=== PATIENT | male | born 1955 | race Caucasian/White ===

== ENCOUNTER 2018-12-06 10:54 | Inpatient (IN) | payer OTHER ==
[~2018-12-06] VITALS: Ht 172.7 cm; Wt 99.6 kg
[~2018-12-06 10:54] MED LIST: ASPI-903 PO; ATOR-2 PO; CIPR750T3 PO; GABA300C16 PO; GLIM1TAB2 PO; MTF1000T PO; SULF1TAB31 PO
[2018-12-06] MEDS ORDERED: KETOROLAC 15 MG INJ IV STA (12:10)
[2018-12-06] MEDS ORDERED: CEFTRIAXONE 1 GM/50 ML (PMX) 50 ML IVPB ONE (12:30)
[2018-12-06] MEDS ORDERED: SOD CHLORIDE 0.9% 500 ML IV ONE (12:30)
[2018-12-06] MEDS ORDERED: ONDANSETRON 4 MG INJ IV PRN ×2 (16:30→18:30)
[2018-12-06] MEDS ORDERED: ACETAMINOPHEN 325 MG TAB PO PRN ×2 (16:30→18:30)
--- NOTE | 2018-12-06 17:34 | ERD ---
ER Documentation Chief Complaint Chief Complaint LEFT LEG PAIN ; SENT BY PCP - NEED ULTRASOUND HPI 63-year-old male past medical history of diabetes and hypertension presents for left foot pain times 1 month. He states he has a wound over the left first toe. He was admitted to the hospital here about 2 weeks ago. Was found to have osteomyelitis. He was given IV antibiotics and discharged with oral antibiotics. He follow-up with his severity of illness coordinator this morning and was asked to return to the ER for concern of ischemic limb and vascular workup. Patient states that the wound does not appear to be improving and there is darkening of the overlying skin. Denies CP, SOB, abdominal pain. ROS All systems reviewed and are negative except as per history of present illness. Medications Home Meds Active Scripts Glimepiride* (Glimepiride*) 1 Mg Tablet, 1 MG PO WITH BREAKFAST for 30 Days, #30 TAB Prov:JANELLE LUNA MD 11/28/18 Ciprofloxacin Hcl* (Ciprofloxacin Hcl*) 750 Mg Tablet, 750 MG PO BID for 30 Days, #60 TAB Prov:JANELLE LUNA MD 11/28/18 Sulfamethoxazole/Trimethoprim* (Bactrim Ds* Tablet) 1 Each Tablet, 1 TAB PO BID for 30 Days, #60 TAB Prov:JANELLE LUNA MD 11/28/18 Reported Medications Aspirin* (Aspirin* Chew) 81 Mg Tab.chew, 81 MG PO DAILY, TAB.CHEW 11/26/18 Atorvastatin* (Atorvastatin*) 80 Mg Tablet, 80 MG PO QHS, #30 TAB 11/26/18 Metformin* (Glucophage*) 1,000 Mg Tablet, 1000 MG PO BID, #60 TAB 11/26/18 Gabapentin* (Gabapentin*) 300 Mg Capsule, 300 MG PO TID, #90 CAP 11/26/18 Allergies Allergies: Coded Allergies: No Known Allergy (Unverified , 11/26/18) PMhx/Soc History of Surgery: Yes (Bilateral eyes Cataractectomy) Anesthesia Reaction: No Hx Neurological Disorder: Yes (neuropaty) Hx Respiratory Disorders: No Hx Cardiac Disorders: No Hx Psychiatric Problems: No Hx Miscellaneous Medical Probl: No Hx Alcohol Use: No Hx Substance Use: No Hx Tobacco Use: No Smoking Status: Never smoker Physical Exam Vitals Vital Signs Date Temp Pulse Resp B/P (MAP) Pulse Ox O2 O2 Flow FiO2 Time Delivery Rate 12/06/18 77 18 138/75 98 Room Air 15:50 (96) 12/06/18 97.9 90 18 119/57 96 11:03 (77) Physical Exam Const: No acute distress Resp: Clear to auscultation bilaterally Cardio: Regular rate and rhythm, no murmurs Abd: Soft, non tender, non distended. Normal bowel sounds Skin: No petechiae or rashes Back: No midline or flank tenderness Ext: left 5th toe gangrene and swelling noted Neur: Awake and alert Psych: Normal Mood and Affect Result Diagram: 12/06/18 1210 12/06/18 1210 Results 24 hrs Laboratory Tests Test 12/06/18 12:09 12/06/18 12:10 Prothrombin Time 13.6 Sec Prothrombin Time Ratio 1.1 INR International Normalized Ratio 1.03 Activated Partial Thromboplast Time 44.7 Sec White Blood Count 9.0 10^3/ul Red Blood Count 4.38 10^6/ul Hemoglobin 12.6 g/dl Hematocrit 38.0 % Mean Corpuscular Volume 86.8 fl Mean Corpuscular Hemoglobin 28.8 pg Mean Corpuscular Hemoglobin Concent 33.2 g/dl Red Cell Distribution Width 12.6 % Platelet Count 424 10^3/UL Mean Platelet Volume 8.7 fl Immature Granulocytes % 0.400 % Neutrophils % 70.0 % Lymphocytes % 18.0 % Monocytes % 9.0 % Eosinophils % 2.3 % Basophils % 0.3 % Nucleated Red Blood Cells % 0.0 /100WBC Immature Granulocytes # 0.040 10^3/ul Neutrophils # 6.3 10^3/ul Lymphocytes # 1.6 10^3/ul Monocytes # 0.8 10^3/ul Eosinophils # 0.2 10^3/ul Basophils # 0.0 10^3/ul Nucleated Red Blood Cells # 0.0 10^3/ul Erythrocyte Sedimentation Rate 96 mm/Hr Sodium Level 138 mmol/L Potassium Level 4.9 mmol/L Chloride Level 103 mmol/L Carbon Dioxide Level 24 mmol/L Anion Gap 11 Blood Urea Nitrogen 31 mg/dl Creatinine 1.50 mg/dl Est Glomerular Filtrat Rate mL/min 47 mL/min Glucose Level 124 mg/dl Calcium Level 9.9 mg/dl Total Bilirubin 0.2 mg/dl Direct Bilirubin 0.00 mg/dl Indirect Bilirubin 0.2 mg/dl Aspartate Amino Transf (AST/SGOT) 31 IU/L Alanine Aminotransferase (ALT/SGPT) < 6 IU/L Alkaline Phosphatase 108 IU/L C-Reactive Protein 2.9 mg/dl Total Protein 8.4 g/dl Albumin 4.4 g/dl Globulin 4.00 g/dl Albumin/Globulin Ratio 1.10 Current Medications Medications Dose Sig/Halley Start Time Status Last (Trade) Ordered Route PRN Stop Time Admin Dose Reason Admin Ceftriaxone 50 ml @ ONCE ONCE 12/06/18 DC 12/06/18 Sodium 100 mls/hr IVPB 12:30 13:10 12/06/18 12:59 Sodium 500 ml @ Q1H ONCE 12/06/18 DC 12/06/18 Chloride 500 mls/hr IV 12:30 12:36 12/06/18 13:29 Ketorolac 15 mg ONCE STAT 12/06/18 DC 12/06/18 Tromethamine IV 12:10 12:37 (Toradol) 12/06/18 12:11 Ondansetron 4 mg BRIDGE ORDER 12/06/18 HCl (Zofran PRN IV 16:30 Inj) NAUSEA/VOMITI 12/07/18 16:29 NG 650 mg ER BRIDGE 12/06/18 Acetaminophen PRN PO 16:30 (Tylenol .MILD PAIN 12/07/18 16:29 Tab) 1-3 OR TEMP Procedures/MDM Medical Decision Making: Differential diagnosis includes but not limited to left hallux gangrene, osteomyelitis, diabetic ulceration Patient appeared well on physical exam. Examination of the left great toes shows open wound with surrounding gangrene. CBC showed mild anemia hemoglobin 12.6, no elevated white count CMP showed BUN 31 creatinine 1.5 consistent with a acute kidney injury, no electrolyte abnormalities, liver function normal ESR noted to be 96, CRP 2.9 Foot x-ray showed signs of osteomyelitis ED course: Patient was given IV fluids, Toradol, Zofran, IV Rocephin Symptoms improved with treatment. Comparison of ESR value prior to patient's last discharge, it was noted that the ESR increasing bilingual call center representative hospitalist Dr. Kenny was contacted and agreed to admit patient for further management. Disclaimer: Inadvertent spelling and grammatical errors are likely due to EHR/dictation software use and do not reflect on the overall quality of patient care. Also, please note that the electronic time recorded on this note does not necessarily reflect the actual time of the patient encounter. Departure Diagnosis: Primary Impression: Gangrene Additional Impression: Osteomyelitis Osteomyelitis type: unspecified type Osteomyelitis location: foot Laterality: left Qualified Codes: M86.9 - Osteomyelitis, unspecified FRANK TESFAYE DO Dec 06, 2018 17:34
[2018-12-06 18:24] VITALS: BP 135/76; PULSE 81; RESP 17
--- NOTE | 2018-12-06 18:26 | HP ---
Date/Time of Note Date/Time of Note DATE: 12/06/18 TIME: 18:21 Assessment/Plan VTE Prophylaxis Pharmacological prophylaxis: heparin Lines/Catheters IV Catheter Type (from [facility]): [facility] Assessment/Plan Hospital Course 1. Left great toe osteomyelitis with nonhealing ulcer The patient was recently hospitalized and underwent debridements and received IV antibiotics Cultures grew back group B strep, start Rocephin Podiatry consultation obtained No evidence of sepsis at this time 2. Diabetes-poorly controlled Hold home p.o. meds Scheduled insulin and sliding scale 3. Acute kidney injury Patient does have an acute elevation of creatinine IV fluids Prophylaxis: Heparin Result Diagram: 12/06/18 1210 12/06/18 1210 Results 24hrs Laboratory Tests Test 12/06/18 12:09 12/06/18 12:10 Prothrombin Time 13.6 Prothrombin Time Ratio 1.1 INR International Normalized Ratio 1.03 Activated Partial Thromboplast Time 44.7 H White Blood Count 9.0 Red Blood Count 4.38 L Hemoglobin 12.6 L Hematocrit 38.0 L Mean Corpuscular Volume 86.8 Mean Corpuscular Hemoglobin 28.8 L Mean Corpuscular Hemoglobin Concent 33.2 Red Cell Distribution Width 12.6 Platelet Count 424 H Mean Platelet Volume 8.7 Immature Granulocytes % 0.400 Neutrophils % 70.0 Lymphocytes % 18.0 Monocytes % 9.0 Eosinophils % 2.3 Basophils % 0.3 Nucleated Red Blood Cells % 0.0 Immature Granulocytes # 0.040 H Neutrophils # 6.3 Lymphocytes # 1.6 Monocytes # 0.8 Eosinophils # 0.2 Basophils # 0.0 Nucleated Red Blood Cells # 0.0 Erythrocyte Sedimentation Rate 96 H Sodium Level 138 Potassium Level 4.9 Chloride Level 103 Carbon Dioxide Level 24 Anion Gap 11 Blood Urea Nitrogen 31 H Creatinine 1.50 H Est Glomerular Filtrat Rate mL/min 47 L Glucose Level 124 Calcium Level 9.9 Total Bilirubin 0.2 Direct Bilirubin 0.00 Indirect Bilirubin 0.2 Aspartate Amino Transf (AST/SGOT) 31 Alanine Aminotransferase (ALT/SGPT) < 6 L Alkaline Phosphatase 108 C-Reactive Protein 2.9 H Total Protein 8.4 H Albumin 4.4 Globulin 4.00 H Albumin/Globulin Ratio 1.10 HPI/ROS Admit Date/Time Admit Date/Time Dec 06, 2018 at 16:21 Hx of Present Illness Patient is a 63-year-old male with a history of diabetes, peripheral neuropathy as well as osteomyelitis of the left great toe. Patient was recently hospitalized and diagnosed with osteomyelitis, patient was treated with IV antibiotics did undergo a debridement. Cultures did grow group B strep and patient was discharged with p.o. Bactrim and Cipro. Patient was provided with home health was to follow-up with his curling machine operator as an outpatient for further care. Patient was at his curling machine operator office today was told to come to the ER of [facility] due to worsening of the toe infection. Patient has no evidence of sepsis at this time patient has no other complaints. ROS Constitutional: no complaints, improved Eyes: no complaints ENT: no complaints Respiratory: no complaints Cardiovascular: no complaints Gastrointestinal: no complaints Genitourinary: no complaints Musculoskeletal: no complaints Skin: skin lesions Neurologic: no complaints Endocrine: no complaints Lymphatic: no complaints Psychological: no complaints, nl mood/affect Immunologic: no complaints PMH/Family/Social Past Medical History Diabetes, OM of the left great toe Medications Current Medications Ondansetron HCl (Zofran Inj) 4 mg BRIDGE ORDER PRN IV NAUSEA/VOMITING; Start 12/06/18 at 16:30; Stop 12/07/18 at 16:29 Acetaminophen (Tylenol Tab) 650 mg ER BRIDGE PRN PO .MILD PAIN 1-3 OR TEMP; Start 12/06/18 at 16:30; Stop 12/07/18 at 16:29 Coded Allergies: No Known Allergy (Unverified , 11/26/18) Past Surgical History Past Surgical Hx: no surgical history Family History Significant Family History: no pertinent family hx Social History Alcohol Use: rarely Smoking Status: Never smoker Drug Use: none Exam/Review of Systems Vital Signs Vitals Vital Signs Date Temp Pulse Resp B/P (MAP) Pulse Ox O2 O2 Flow FiO2 Time Delivery Rate 12/06/18 98.0 77 18 100/50 98 Room Air 17:41 (67) Exam Constitutional: alert, oriented Respiratory: clear to auscultation Cardiovascular: regular rate and rhythm Gastrointestinal: soft; No distended Musculoskeletal: nl extremities to inspection PEREZ FREY Dec 06, 2018 18:26
[2018-12-06 18:30] VITALS: Ht 172.7 cm; Wt 99.6 kg
[2018-12-06] MEDS ORDERED: morphine 2 MG INJ IV PRN (18:30)
[2018-12-06] MEDS ORDERED: NACL 0.9% 3 ML SYG IV SCH (18:30)
[2018-12-06] MEDS ORDERED: DOCUSATE SODIUM 100 MG CAP PO PRN (18:30)
[2018-12-06] MEDS ORDERED: ZOLPIDEM 5 MG TAB PO PRN (18:30)
[2018-12-06] MEDS ORDERED: GLUCOSE GEL 15 GRAM TUBE BUCCAL PRN (19:00)
[2018-12-06] MEDS ORDERED: DEXTROSE 50% 50 ML SYRINGE IV PRN ×2 (19:00)
[2018-12-06] MEDS ORDERED: GLUCAGON 1 MG INJ IM PRN (19:00)
[2018-12-06] MEDS ORDERED: GLUCOSE GEL 15 GRAM TUBE PO PRN ×2 (19:00)
--- NOTE | 2018-12-06 19:08 | CONS ---
Assessment/Plan Assessment/Plan Assessment/Plan (Daily) Dry gangrene left hallux Left hallux osteomyelitis Left hallux diabetic ulcer PAD DM2 with peripheral neuropathy Plan: Reviewed previous vascular studies which revealed Mild to moderate stenosis of the right distal SFA and left posterior tibial artery. Blunted waveforms b ilaterally compatible with vascular resistance. Recommend vascular evaluation. Patient would benefit from OR debridement and removal osteomyelitis of distal phalanx. No leukocytosis and no fevers appreciated. Recommend daily betadine dressing changes. Likely plan for OR procedure next week. Previous wound Cx was strep group B agalactiae IV abx per recommendations. Consultation Date/Type/Reason Admit Date/Time Dec 06, 2018 at 16:21 Date/Time of Note DATE: 12/06/18 TIME: 19:08 Hx of Present Illness 63-year-old male with a history of diabetes, peripheral neuropathy as well as osteomyelitis of the left great toe. Patient was recently hospitalized and diagnosed with osteomyelitis, patient was treated with IV antibiotics did undergo a debridement. Cultures did grow group B strep and patient was discharged with p.o. Bactrim and Cipro. Patient was provided with home health was to follow-up with his voip network engineer as an outpatient for further care. Patient was at his voip network engineer office today was told to come to the ER of [facility] due to worsening of the toe infection. Patient has no evidence of sepsis at this time patient has no other complaints. ROS Constitutional: no complaints, improved Eyes: no complaints ENT: no complaints Respiratory: no complaints Cardiovascular: no complaints Gastrointestinal: no complaints Genitourinary: no complaints Musculoskeletal: no complaints Skin: skin lesions Neurologic: no complaints Endocrine: no complaints Lymphatic: no complaints Psychological: no complaints, nl mood/affect Immunologic: no complaints Past Medical History diabetes, VARUN, osteomyelitis L hallux Home Meds Active Scripts Glimepiride* (Glimepiride*) 1 Mg Tablet, 1 MG PO WITH BREAKFAST for 30 Days, #30 TAB Prov:JANELLE LUNA MD 11/28/18 Ciprofloxacin Hcl* (Ciprofloxacin Hcl*) 750 Mg Tablet, 750 MG PO BID for 30 Days, #60 TAB Prov:JANELLE LUNA MD 11/28/18 Sulfamethoxazole/Trimethoprim* (Bactrim Ds* Tablet) 1 Each Tablet, 1 TAB PO BID for 30 Days, #60 TAB Prov:JANELLE LUNA MD 11/28/18 Reported Medications Aspirin* (Aspirin* Chew) 81 Mg Tab.chew, 81 MG PO DAILY, TAB.CHEW 11/26/18 Atorvastatin* (Atorvastatin*) 80 Mg Tablet, 80 MG PO QHS, #30 TAB 11/26/18 Metformin* (Glucophage*) 1,000 Mg Tablet, 1000 MG PO BID, #60 TAB 11/26/18 Gabapentin* (Gabapentin*) 300 Mg Capsule, 300 MG PO TID, #90 CAP 11/26/18 Medications Current Medications IV Flush (NS 3 ml) 3 ml PER PROTOCOL IV ; Start 12/06/18 at 18:30 Ondansetron HCl (Zofran Inj) 4 mg Q6H PRN IV NAUSEA/VOMITING; Start 12/06/18 at 18:30 Acetaminophen (Tylenol Tab) 650 mg Q6H PRN PO .PAIN 1-3 OR TEMP; Start 12/06/18 at 18:30 Acetaminophen/ Hydrocodone Bitart ([place] (5/325)) 1 tab Q6H PRN PO .MOD PAIN 4- 6; Start 12/06/18 at 18:30 Morphine Sulfate (morphine) 2 mg Q4H PRN IV .SEVERE PAIN 7-10; Start 12/06/18 at 18:30 Docusate Sodium (Colace) 100 mg Q12H PRN PO .CONSTIPATION; Start 12/06/18 at 18:30 Zolpidem Tartrate (Ambien) 5 mg QHS PRN PO .INSOMNIA; Start 12/06/18 at 18:30 Heparin Sodium (Porcine) (Heparin (5000 Units/1ml)) 5,000 unit Q12 SC ; Start 12/06/18 at 21:00 Ceftriaxone Sodium 50 ml @ 100 mls/hr Q24H IVPB ; Start 12/07/18 at 13:00 Aspirin (Aspirin) 81 mg DAILY PO ; Start 12/07/18 at 09:00 Atorvastatin Calcium (Lipitor) 80 mg QHS PO ; Start 12/06/18 at 21:00 Gabapentin (Neurontin) 300 mg TID PO ; Start 12/06/18 at 21:00 Diagnostic Test (Pha) (Accu-Chek) 1 ea 02 XX ; Start 12/07/18 at 02:00 Insulin Glargine (Lantus) 20 units DAILY@2000 SC ; Start 12/06/18 at 20:00 Insulin Aspart (Novolog Insulin Pen) 7 unit WITH MEALS SC ; Start 12/07/18 at 08:00 Insulin Aspart (Novolog Insulin Pen) NOVOLOG *MILD* ALGORITHM WITH MEALS BEDTIME SC ; Start 12/06/18 at 21:00 Sodium Chloride 1,000 ml @ 100 mls/hr Q10H IV ; Start 12/06/18 at 18:30 Miscellaneous Information 1 ea NOTE XX ; Start 12/06/18 at 19:00 Glucose (Glutose) 15 gm Q15M PRN PO DECREASED GLUCOSE; Start 12/06/18 at 19:00 Glucose (Glutose) 22.5 gm Q15M PRN PO DECREASED GLUCOSE; Start 12/06/18 at 19:00 Dextrose (D50w Syringe) 25 ml Q15M PRN IV DECREASED GLUCOSE; Start 12/06/18 at 19:00 Dextrose (D50w Syringe) 50 ml Q15M PRN IV DECREASED GLUCOSE; Start 12/06/18 at 19:00 Glucagon (Glucagen) 1 mg Q15M PRN IM DECREASED GLUCOSE; Start 12/06/18 at 19:00 Glucose (Glutose) 15 gm Q15M PRN BUCCAL DECREASED GLUCOSE; Start 12/06/18 at 19:00 Allergies: Coded Allergies: No Known Allergy (Unverified , 11/26/18) Past Surgical History Past Surgical Hx: no surgical history Family History Significant Family History: no pertinent family hx Social History Alcohol Use: rarely Smoking Status: Never smoker Drug Use: none Exam/Review of Systems Exam Vitals Vital Signs Date Temp Pulse Resp B/P (MAP) Pulse Ox O2 O2 Flow FiO2 Time Delivery Rate 12/06/18 98.1 81 17 135/76 99 Room Air 18:24 (95) Exam Palpable DP/PT pulses Absent protective sensations Skin temperature gradient warm to warm from proximal leg to distal feet Left hallux with dry gangrene 3 x 3cm with surrounding granulation tissue appreciated indeterminate depth Muscle strength 5/5 in all compartments of the foot. Foot X-ray IMPRESSION: Findings consistent with osteomyelitis of the great toe distal phalanx. Non invasive arterial studies 11/26/18 IMPRESSION: Mild to moderate stenosis of the right distal SFA and left posterior tibial artery. Blunted waveforms bilaterally compatible with vascular resistance. Results Result Diagram: 12/06/18 1210 12/06/18 1210 Results 24hrs Laboratory Tests Test 12/06/18 12:09 12/06/18 12:10 Prothrombin Time 13.6 Prothrombin Time Ratio 1.1 INR International Normalized Ratio 1.03 Activated Partial Thromboplast Time 44.7 H White Blood Count 9.0 Red Blood Count 4.38 L Hemoglobin 12.6 L Hematocrit 38.0 L Mean Corpuscular Volume 86.8 Mean Corpuscular Hemoglobin 28.8 L Mean Corpuscular Hemoglobin Concent 33.2 Red Cell Distribution Width 12.6 Platelet Count 424 H Mean Platelet Volume 8.7 Immature Granulocytes % 0.400 Neutrophils % 70.0 Lymphocytes % 18.0 Monocytes % 9.0 Eosinophils % 2.3 Basophils % 0.3 Nucleated Red Blood Cells % 0.0 Immature Granulocytes # 0.040 H Neutrophils # 6.3 Lymphocytes # 1.6 Monocytes # 0.8 Eosinophils # 0.2 Basophils # 0.0 Nucleated Red Blood Cells # 0.0 Erythrocyte Sedimentation Rate 96 H Sodium Level 138 Potassium Level 4.9 Chloride Level 103 Carbon Dioxide Level 24 Anion Gap 11 Blood Urea Nitrogen 31 H Creatinine 1.50 H Est Glomerular Filtrat Rate mL/min 47 L Glucose Level 124 Calcium Level 9.9 Total Bilirubin 0.2 Direct Bilirubin 0.00 Indirect Bilirubin 0.2 Aspartate Amino Transf (AST/SGOT) 31 Alanine Aminotransferase (ALT/SGPT) < 6 L Alkaline Phosphatase 108 C-Reactive Protein 2.9 H Total Protein 8.4 H Albumin 4.4 Globulin 4.00 H Albumin/Globulin Ratio 1.10 Medications Medication Current Medications IV Flush (NS 3 ml) 3 ml PER PROTOCOL IV ; Start 12/06/18 at 18:30 Ondansetron HCl (Zofran Inj) 4 mg Q6H PRN IV NAUSEA/VOMITING; Start 12/06/18 at 18:30 Acetaminophen (Tylenol Tab) 650 mg Q6H PRN PO .PAIN 1-3 OR TEMP; Start 12/06/18 at 18:30 Acetaminophen/ Hydrocodone Bitart ([place] (5/325)) 1 tab Q6H PRN PO .MOD PAIN 4- 6; Start 12/06/18 at 18:30 Morphine Sulfate (morphine) 2 mg Q4H PRN IV .SEVERE PAIN 7-10; Start 12/06/18 at 18:30 Docusate Sodium (Colace) 100 mg Q12H PRN PO .CONSTIPATION; Start 12/06/18 at 18:30 Zolpidem Tartrate (Ambien) 5 mg QHS PRN PO .INSOMNIA; Start 12/06/18 at 18:30 Heparin Sodium (Porcine) (Heparin (5000 Units/1ml)) 5,000 unit Q12 SC ; Start 12/06/18 at 21:00 Ceftriaxone Sodium 50 ml @ 100 mls/hr Q24H IVPB ; Start 12/07/18 at 13:00 Aspirin (Aspirin) 81 mg DAILY PO ; Start 12/07/18 at 09:00 Atorvastatin Calcium (Lipitor) 80 mg QHS PO ; Start 12/06/18 at 21:00 Gabapentin (Neurontin) 300 mg TID PO ; Start 12/06/18 at 21:00 Diagnostic Test (Pha) (Accu-Chek) 1 ea 02 XX ; Start 12/07/18 at 02:00 Insulin Glargine (Lantus) 20 units DAILY@2000 SC ; Start 12/06/18 at 20:00 Insulin Aspart (Novolog Insulin Pen) 7 unit WITH MEALS SC ; Start 12/07/18 at 08:00 Insulin Aspart (Novolog Insulin Pen) NOVOLOG *MILD* ALGORITHM WITH MEALS BEDTIME SC ; Start 12/06/18 at 21:00 Sodium Chloride 1,000 ml @ 100 mls/hr Q10H IV ; Start 12/06/18 at 18:30 Miscellaneous Information 1 ea NOTE XX ; Start 12/06/18 at 19:00 Glucose (Glutose) 15 gm Q15M PRN PO DECREASED GLUCOSE; Start 12/06/18 at 19:00 Glucose (Glutose) 22.5 gm Q15M PRN PO DECREASED GLUCOSE; Start 12/06/18 at 19:00 Dextrose (D50w Syringe) 25 ml Q15M PRN IV DECREASED GLUCOSE; Start 12/06/18 at 19:00 Dextrose (D50w Syringe) 50 ml Q15M PRN IV DECREASED GLUCOSE; Start 12/06/18 at 19:00 Glucagon (Glucagen) 1 mg Q15M PRN IM DECREASED GLUCOSE; Start 12/06/18 at 19:00 Glucose (Glutose) 15 gm Q15M PRN BUCCAL DECREASED GLUCOSE; Start 12/06/18 at 19:00 MATTHEW GIRALDO DPM Dec 06, 2018 19:08
[2018-12-06 20:08] VITALS: BP 141/76; PULSE 77; RESP 18
[2018-12-06] MEDS: INSULIN ASPART [NOVOLOG] 3 ML PEN SC SCH (21:00)
[2018-12-06] MEDS: ATORVASTATIN 80 MG TAB PO SCH (21:01)
[2018-12-06] MEDS: SOD CHLORIDE 0.9% 1,000 ML IV SCH (21:01)
[2018-12-06] MEDS: GABAPENTIN 300 MG CAP PO SCH (21:01)
[2018-12-06] MEDS: HEPARIN 5,000 UNIT/1 ML VIAL SC SCH (21:16)
[2018-12-06] MEDS: INSULIN GLARGINE [LANTus] (100 UNITS/ML) SYG SC SCH (21:45)
[2018-12-07 01:54] VITALS: BP 130/63; PULSE 75; RESP 18
[2018-12-07] MEDS: ACCU-CHEK XX SCH (02:00)
[2018-12-07] MEDS: SOD CHLORIDE 0.9% 1,000 ML IV SCH ×3 (06:19→18:21)
[2018-12-07] MEDS: INSULIN ASPART [NOVOLOG] 3 ML PEN SC SCH ×7 (08:00→20:42)
[2018-12-07 08:03] VITALS: BP 123/71; PULSE 80; RESP 18
[2018-12-07] MEDS: ASPIRIN 81 MG TAB PO SCH (08:03)
[2018-12-07] MEDS: GABAPENTIN 300 MG CAP PO SCH ×3 (08:03→20:39)
[2018-12-07] MEDS: HEPARIN 5,000 UNIT/1 ML VIAL SC SCH ×2 (08:05→20:41)
[2018-12-07] MEDS ORDERED: SODIUM HYPOCHLORITE (1/40) 1 APPLIC BTL IRR SCH (09:00)
[2018-12-07] MEDS ORDERED: COLLAGENASE 5 GM (UD JAR) TOP SCH (09:00)
--- NOTE | 2018-12-07 10:48 | CONS ---
DATE OF ADMISSION: 12/06/2018 DATE OF CONSULTATION: 12/07/2018 TYPE OF CONSULTATION: Vascular REFERRING PHYSICIAN: Dr. Perez Kenny. REASON FOR CONSULTATION: Vascular evaluation of left first toe gangrene. HISTORY OF PRESENT ILLNESS: This is a 63-year-old diabetic hypertensive gentleman who was at bedside osteomyelitis and an ulcer on the tip of the left great toe. He says it started about a month ago. He has now progressed to dry gangrene at the tip. He had group B strep growing from the wound. He has been on p.o. Bactrim and Cipro. He is now in the hospital and is getting IV antibiotics. He was sent to the ER by Dr. Fairbanks, his education research analyst, because of worsening infection in the toe. There i s sort of mild pain. He is a nonsmoker. PAST MEDICAL HISTORY: Significant for diabetes, hyperlipidemia, peripheral arterial disease. MEDICATIONS: Currently consist of: 1. Ceftriaxone. 2. Aspirin. 3. He is getting Santyl to the wound. 4. Dakin solution to the wound. 5. Insulin. 6. Subcutaneous heparin. 7. Lipitor. 8. Gabapentin. 9. Zofran. PAST SURGICAL HISTORY: Never had any surgery before. SOCIAL HISTORY: He is a nonsmoker. Does not drink or use any illicit drugs. FAMILY HISTORY: Noncontributory. REVIEW OF SYSTEMS: He denies any complaint really. He has no chest pain or shortness of breath, no nausea, vomiting, diarrhea. No fever, no chills, no recent weight gain or weight loss. No abdominal or back pain. PHYSICAL EXAMINATION: GENERAL: He is an elderly gentleman. He speaks Occitan with a little bit of Turkmen and I had a medical scientific liaison help me with the interview. VITAL SIGNS: He has been afebrile. His blood pressure is 130/63, heart rate 75, respiratory rate is 18, he is 96% sat on room air. NECK: He has 2+ carotid, radial and brachial pulses bilaterally. LUNGS: Clear. HEART: Regular rate and rhythm. ABDOMEN: Soft, nontender, nondistended. EXTREMITIES: He has 2+ femoral pulses bilaterally. He has 2+ popliteal pulses bilaterally. On the left, he has maybe 1+ DP pulse. PT pulses, nonpalpable. On the right he has no palpable DP or PT pu lse. He had an arterial duplex done just a few weeks ago that shows tibial disease bilaterally, wors e on the right than the left, although there are gangrenous changes of the foot on the left and the l eft great toe tip has dry gangrene and is covered with black eschar. Apparently there was some purul ent drainage earlier today. It looks very dry. I do not see any signs of ongoing infection. He did have an x-ray that shows osteomyelitis of the great toe distal phalanx. There is a lot of vascular calcifications. IMPRESSION: Left first toe dry gangrene with underlying osteomyelitis. He will most likely need an amputation of the toe. Dr. Fairbanks is going to debride it today and I will discuss with him. He h as some underlying chronic kidney disease with creatinine was 1.5 when he came in, it has come down t o 1.1 today, so I think he will be fine for an angiogram. I scheduled him for Monday morning at 7:30 and we will take a look at the left leg and see if there is anything I can do to improve the perfusi on to the foot to help it heal, if we treat him with antibiotics, or if the gets the toe amputated, h e needs good perfusion to the area. Dictated By: ARIS GALAVIZ/ONUR Conf#: [id number] DID#: [id number] CC: PEREZ KENNY MD;*EndCC*
--- NOTE | 2018-12-07 11:08 | PN ---
Date/Time of Note Date/Time of Note DATE: 12/07/18 TIME: 11:04 Assessment/Plan VTE Prophylaxis Risk score (from Nsg)>0 risk: 3 Pharmacological prophylaxis: heparin Lines/Catheters IV Catheter Type (from Nrsg): Saline Lock Urinary Cath still in place: No Assessment/Plan Hospital Course 1. Left great toe osteomyelitis with nonhealing ulcer The patient was recently hospitalized and underwent debridements and received IV antibiotics Cultures grew back group B strep, continue Rocephin Podiatry and vascular consultations appreciated, plan is for angiogram on Monday and further surgery with podiatry next week No evidence of sepsis at this time 2. Diabetes-poorly controlled Hold home p.o. meds Continue current scheduled insulin and sliding scale 3. Prerenal acute kidney injury Improved with IV fluids Continue IV fluids Monitor Prophylaxis: Heparin Result Diagram: 12/07/1852312/07/18523 Results 24hrs Laboratory Tests Test 12/06/18 12:09 12/06/18 12:10 12/06/18 20:17 12/06/18 21:31 Prothrombin Time 13.6 Prothrombin Time 1.1 Ratio INR International 1.03 Normalized Ratio Activated 44.7 H Partial Thromboplast Time White Blood Count 9.0 Red Blood Count 4.38 L Hemoglobin 12.6 L Hematocrit 38.0 L Mean Corpuscular 86.8 Volume Mean Corpuscular 28.8 L Hemoglobin Mean Corpuscular 33.2 Hemoglobin Concent Red Cell 12.6 Distribution Width Platelet Count 424 H Mean Platelet Volume 8.7 Immature 0.400 Granulocytes % Neutrophils % 70.0 Lymphocytes % 18.0 Monocytes % 9.0 Eosinophils % 2.3 Basophils % 0.3 Nucleated Red Blood 0.0 Cells % Immature 0.040 H Granulocytes # Neutrophils # 6.3 Lymphocytes # 1.6 Monocytes # 0.8 Eosinophils # 0.2 Basophils # 0.0 Nucleated Red Blood 0.0 Cells # Erythrocyte 96 H Sedimentation Rate Sodium Level 138 Potassium Level 4.9 Chloride Level 103 Carbon Dioxide Level 24 Anion Gap 11 Blood Urea Nitrogen 31 H Creatinine 1.50 H Est Glomerular 47 L Filtrat Rate mL/min Glucose Level 124 Calcium Level 9.9 Total Bilirubin 0.2 Direct Bilirubin 0.00 Indirect Bilirubin 0.2 Aspartate Amino 31 Transf (AST/SGOT) Alanine < 6 L Aminotransferase (AL T/SGPT) Alkaline Phosphatase 108 C-Reactive Protein 2.9 H Total Protein 8.4 H Albumin 4.4 Globulin 4.00 H Albumin/Globulin 1.10 Ratio Bedside Glucose 91 154 Test 12/07/18 05:24 12/07/18 08:02 White Blood Count 6.2 # Red Blood Count 3.98 L Hemoglobin 11.5 L Hematocrit 34.9 L Mean Corpuscular 87.7 Volume Mean Corpuscular 28.9 L Hemoglobin Mean Corpuscular 33.0 Hemoglobin Concent Red Cell 12.5 Distribution Width Platelet Count 358 Mean Platelet Volume 8.8 Immature 0.300 Granulocytes % Neutrophils % 56.4 Lymphocytes % 28.3 Monocytes % 11.1 H Eosinophils % 3.4 Basophils % 0.5 Nucleated Red Blood 0.0 Cells % Immature 0.020 Granulocytes # Neutrophils # 3.5 Lymphocytes # 1.8 Monocytes # 0.7 Eosinophils # 0.2 Basophils # 0.0 Nucleated Red Blood 0.0 Cells # Sodium Level 138 Potassium Level 4.4 Chloride Level 103 Carbon Dioxide Level 25 Anion Gap 10 Blood Urea Nitrogen 24 H Creatinine 1.18 Est Glomerular > 60 Filtrat Rate mL/min Glucose Level 130 Calcium Level 9.0 Phosphorus Level 3.4 Magnesium Level 2.1 Bedside Glucose 95 Subjective 24 Hr Interval Summary Constitutional: no complaints Exam/Review of Systems Exam Vitals Vital Signs Date Temp Pulse Resp B/P (MAP) Pulse Ox O2 O2 Flow FiO2 Time Delivery Rate 12/07/18 98.4 80 18 123/71 98 08:03 (88) 12/06/18 Room Air 18:24 Intake and Output 12/06/18 12/06/18 12/07/18 1515:00 23:00 07:00 IntakeIntake Total 550 ml 240 ml 1600 ml OutputOutput Total 750 ml BalanceBalance 550 ml 240 ml 850 ml Constitutional: alert, oriented Respiratory: clear to auscultation Cardiovascular: regular rate and rhythm Gastrointestinal: soft; No distended Musculoskeletal: No nl extremities to inspection Results Results 24hrs Laboratory Tests Test 12/06/18 12:09 12/06/18 12:10 12/06/18 20:17 12/06/18 21:31 Prothrombin Time 13.6 Prothrombin Time 1.1 Ratio INR International 1.03 Normalized Ratio Activated 44.7 H Partial Thromboplast Time White Blood Count 9.0 Red Blood Count 4.38 L Hemoglobin 12.6 L Hematocrit 38.0 L Mean Corpuscular 86.8 Volume Mean Corpuscular 28.8 L Hemoglobin Mean Corpuscular 33.2 Hemoglobin Concent Red Cell 12.6 Distribution Width Platelet Count 424 H Mean Platelet Volume 8.7 Immature 0.400 Granulocytes % Neutrophils % 70.0 Lymphocytes % 18.0 Monocytes % 9.0 Eosinophils % 2.3 Basophils % 0.3 Nucleated Red Blood 0.0 Cells % Immature 0.040 H Granulocytes # Neutrophils # 6.3 Lymphocytes # 1.6 Monocytes # 0.8 Eosinophils # 0.2 Basophils # 0.0 Nucleated Red Blood 0.0 Cells # Erythrocyte 96 H Sedimentation Rate Sodium Level 138 Potassium Level 4.9 Chloride Level 103 Carbon Dioxide Level 24 Anion Gap 11 Blood Urea Nitrogen 31 H Creatinine 1.50 H Est Glomerular 47 L Filtrat Rate mL/min Glucose Level 124 Calcium Level 9.9 Total Bilirubin 0.2 Direct Bilirubin 0.00 Indirect Bilirubin 0.2 Aspartate Amino 31 Transf (AST/SGOT) Alanine < 6 L Aminotransferase (AL T/SGPT) Alkaline Phosphatase 108 C-Reactive Protein 2.9 H Total Protein 8.4 H Albumin 4.4 Globulin 4.00 H Albumin/Globulin 1.10 Ratio Bedside Glucose 91 154 Test 12/07/18 05:24 12/07/18 08:02 White Blood Count 6.2 # Red Blood Count 3.98 L Hemoglobin 11.5 L Hematocrit 34.9 L Mean Corpuscular 87.7 Volume Mean Corpuscular 28.9 L Hemoglobin Mean Corpuscular 33.0 Hemoglobin Concent Red Cell 12.5 Distribution Width Platelet Count 358 Mean Platelet Volume 8.8 Immature 0.300 Granulocytes % Neutrophils % 56.4 Lymphocytes % 28.3 Monocytes % 11.1 H Eosinophils % 3.4 Basophils % 0.5 Nucleated Red Blood 0.0 Cells % Immature 0.020 Granulocytes # Neutrophils # 3.5 Lymphocytes # 1.8 Monocytes # 0.7 Eosinophils # 0.2 Basophils # 0.0 Nucleated Red Blood 0.0 Cells # Sodium Level 138 Potassium Level 4.4 Chloride Level 103 Carbon Dioxide Level 25 Anion Gap 10 Blood Urea Nitrogen 24 H Creatinine 1.18 Est Glomerular > 60 Filtrat Rate mL/min Glucose Level 130 Calcium Level 9.0 Phosphorus Level 3.4 Magnesium Level 2.1 Bedside Glucose 95 Medications Medication Current Medications IV Flush (NS 3 ml) 3 ml PER PROTOCOL IV ; Start 12/06/18 at 18:30 Ondansetron HCl (Zofran Inj) 4 mg Q6H PRN IV NAUSEA/VOMITING; Start 12/06/18 at 18:30 Acetaminophen (Tylenol Tab) 650 mg Q6H PRN PO .PAIN 1-3 OR TEMP; Start 12/06/18 at 18:30 Acetaminophen/ Hydrocodone Bitart ([place] (5/325)) 1 tab Q6H PRN PO .MOD PAIN 4- 6; Start 12/06/18 at 18:30 Morphine Sulfate (morphine) 2 mg Q4H PRN IV .SEVERE PAIN 7-10 Last administered on 12/06/18 21:01; Admin Dose 2 MG; Start 12/06/18 at 18:30 Docusate Sodium (Colace) 100 mg Q12H PRN PO .CONSTIPATION; Start 12/06/18 at 18:30 Zolpidem Tartrate (Ambien) 5 mg QHS PRN PO .INSOMNIA; Start 12/06/18 at 18:30 Heparin Sodium (Porcine) (Heparin (5000 Units/1ml)) 5,000 unit Q12 SC Last administered on 12/07/18at 08:05; Admin Dose 5,000 UNIT; Start 12/06/18 at 21:00 Ceftriaxone Sodium 50 ml @ 100 mls/hr Q24H IVPB ; Start 12/07/18 at 13:00 Aspirin (Aspirin) 81 mg DAILY PO Last administered on 12/07/18 08:03; Admin Dose 81 MG; Start 12/07/18 at 09:00 Atorvastatin Calcium (Lipitor) 80 mg QHS PO Last administered on 12/06/18 21:01; Admin Dose 80 MG; Start 12/06/18 at 21:00 Gabapentin (Neurontin) 300 mg TID PO Last administered on 12/07/18 08:03; Admin Dose 300 MG; Start 12/06/18 at 21:00 Diagnostic Test (Pha) (Accu-Chek) 1 ea 02 XX ; Start 12/07/18 at 02:00 Insulin Glargine (Lantus) 20 units DAILY@2000 SC Last administered on 12/06/18at 21:45; Admin Dose 20 UNITS; Start 12/06/18 at 20:00 Insulin Aspart (Novolog Insulin Pen) 7 unit WITH MEALS SC Last administered on 2/15/19at 08:04; Admin Dose 7 UNIT; Start 12/07/18 at 08:00 Insulin Aspart (Novolog Insulin Pen) NOVOLOG *MILD* ALGORITHM WITH MEALS BEDTIME SC ; Start 12/06/18 at 21:00 Sodium Chloride 1,000 ml @ 100 mls/hr Q10H IV Last administered on 12/07/18at 06:19; Admin Dose 100 MLS/HR; Start 12/06/18 at 18:30 Miscellaneous Information 1 ea NOTE XX ; Start 12/06/18 at 19:00 Glucose (Glutose) 15 gm Q15M PRN PO DECREASED GLUCOSE; Start 12/06/18 at 19:00 Glucose (Glutose) 22.5 gm Q15M PRN PO DECREASED GLUCOSE; Start 12/06/18 at 19:00 Dextrose (D50w Syringe) 25 ml Q15M PRN IV DECREASED GLUCOSE; Start 12/06/18 at 19:00 Dextrose (D50w Syringe) 50 ml Q15M PRN IV DECREASED GLUCOSE; Start 12/06/18 at 19:00 Glucagon (Glucagen) 1 mg Q15M PRN IM DECREASED GLUCOSE; Start 12/06/18 at 19:00 Glucose (Glutose) 15 gm Q15M PRN BUCCAL DECREASED GLUCOSE; Start 12/06/18 at 19:00 Collagenase (Santyl) 1 applic DAILY TOP Last administered on 12/07/18at 08:07; Admin Dose 1 APPLIC; Start 12/07/18 at 09:00 Sodium Hypochlorite (Dakin'S (Dilute 1/40)) 1 applic DAILY IRR Last administered on 12/07/18at 08:07; Admin Dose 1 APPLIC; Start 12/07/18 at 09:00 PEREZ FREY Dec 07, 2018 11:08
[2018-12-07] MEDS: CEFTRIAXONE 1 GM/50 ML (PMX) 50 ML IVPB SCH (13:14)
[2018-12-07 14:25] VITALS: BP 134/73; RESP 16
[2018-12-07 19:52] VITALS: BP 126/70; PULSE 76; RESP 18
[2018-12-07] MEDS: ATORVASTATIN 80 MG TAB PO SCH (20:39)
[2018-12-07] MEDS: INSULIN GLARGINE [LANTus] (100 UNITS/ML) SYG SC SCH (20:40)
[2018-12-08] MEDS: SOD CHLORIDE 0.9% 1,000 ML IV SCH ×4 (00:30→18:08)
[2018-12-08] MEDS: ACCU-CHEK XX SCH (01:21)
[2018-12-08 01:51] VITALS: BP 136/69; PULSE 69; RESP 18
[2018-12-08] MEDS: INSULIN ASPART [NOVOLOG] 3 ML PEN SC SCH ×7 (08:00→20:35)
[2018-12-08] MEDS: GABAPENTIN 300 MG CAP PO SCH ×3 (08:05→20:34)
[2018-12-08] MEDS: ASPIRIN 81 MG TAB PO SCH (08:05)
[2018-12-08] MEDS: HEPARIN 5,000 UNIT/1 ML VIAL SC SCH ×2 (08:09→20:40)
[2018-12-08 08:12] VITALS: BP 156/80; PULSE 69; RESP 20
--- NOTE | 2018-12-08 10:16 | PN ---
Date/Time of Note Date/Time of Note DATE: 12/08/18 TIME: 10:16 Assessment/Plan VTE Prophylaxis Risk score (from Ns)>0 risk: 5 SCD applied (from Nsg): Yes Pharmacological prophylaxis: heparin Lines/Catheters IV Catheter Type (from Nrsg): Peripheral IV Urinary Cath still in place: No Assessment/Plan Hospital Course 1. Left great toe osteomyelitis with nonhealing ulcer The patient was recently hospitalized and underwent debridements and received IV antibiotics Cultures grew back group B strep, continue Rocephin Podiatry and vascular consultations appreciated, plan is for angiogram on Monday and further surgery with podiatry next week No evidence of sepsis at this time 2. Diabetes-poorly controlled Hold home p.o. meds Continue current scheduled insulin and sliding scale 3. Prerenal acute kidney injury Improved with IV fluids Continue IV fluids Monitor Prophylaxis: Heparin Result Diagram: 12/07/1852312/07/18523 Results 24hrs Laboratory Tests Test 12/07/18 13:12 12/07/18 17:39 12/07/18 20:37 12/08/18 07:59 Bedside Glucose 107 125 138 118 Subjective 24 Hr Interval Summary Constitutional: no complaints Exam/Review of Systems Exam Vitals Vital Signs Date Temp Pulse Resp B/P (MAP) Pulse Ox O2 O2 Flow FiO2 Time Delivery Rate 12/08/18 98.2 69 20 156/80 98 08:12 (105) 12/06/18 Room Air 18:24 Intake and Output 12/07/18 12/07/18 12/08/18 1515:00 23:00 07:00 IntakeIntake Total 1010 ml 1480 ml 2000 ml OutputOutput Total 450 ml 1600 ml BalanceBalance 560 ml 1480 ml 400 ml Constitutional: alert, oriented Respiratory: clear to auscultation Cardiovascular: regular rate and rhythm Gastrointestinal: soft; No distended Musculoskeletal: No nl extremities to inspection Results Results 24hrs Laboratory Tests Test 12/07/18 13:12 12/07/18 17:39 12/07/18 20:37 12/08/18 07:59 Bedside Glucose 107 125 138 118 Medications Medication Current Medications IV Flush (NS 3 ml) 3 ml PER PROTOCOL IV ; Start 12/06/18 at 18:30 Ondansetron HCl (Zofran Inj) 4 mg Q6H PRN IV NAUSEA/VOMITING; Start 12/06/18 at 18:30 Acetaminophen (Tylenol Tab) 650 mg Q6H PRN PO .PAIN 1-3 OR TEMP; Start 12/06/18 at 18:30 Acetaminophen/ Hydrocodone Bitart ([place] (5/325)) 1 tab Q6H PRN PO .MOD PAIN 4- 6; Start 12/06/18 at 18:30 Morphine Sulfate (morphine) 2 mg Q4H PRN IV .SEVERE PAIN 7-10 Last administered on 12/06/18 21:01; Admin Dose 2 MG; Start 12/06/18 at 18:30 Docusate Sodium (Colace) 100 mg Q12H PRN PO .CONSTIPATION; Start 12/06/18 at 18:30 Zolpidem Tartrate (Ambien) 5 mg QHS PRN PO .INSOMNIA; Start 12/06/18 at 18:30 Heparin Sodium (Porcine) (Heparin (5000 Units/1ml)) 5,000 unit Q12 SC Last administered on 12/08/18 08:09; Admin Dose 5,000 UNIT; Start 12/06/18 at 21:00 Ceftriaxone Sodium 50 ml @ 100 mls/hr Q24H IVPB Last administered on 12/07/18 13:14; Admin Dose 100 MLS/HR; Start 12/07/18 at 13:00 Aspirin (Aspirin) 81 mg DAILY PO Last administered on 12/08/18 08:05; Admin Dose 81 MG; Start 12/07/18 at 09:00 Atorvastatin Calcium (Lipitor) 80 mg QHS PO Last administered on 12/07/18 20:39; Admin Dose 80 MG; Start 12/06/18 at 21:00 Gabapentin (Neurontin) 300 mg TID PO Last administered on 12/08/18 08:05; Admin Dose 300 MG; Start 12/06/18 at 21:00 Diagnostic Test (Pha) (Accu-Chek) 1 ea 02 XX ; Start 12/07/18 at 02:00 Insulin Glargine (Lantus) 20 units DAILY@2000 SC Last administered on 12/07/18 20:40; Admin Dose 20 UNITS; Start 12/06/18 at 20:00 Insulin Aspart (Novolog Insulin Pen) 7 unit WITH MEALS SC Last administered on 12/08/18 08:09; Admin Dose 7 UNIT; Start 12/07/18 at 08:00 Insulin Aspart (Novolog Insulin Pen) NOVOLOG *MILD* ALGORITHM WITH MEALS BEDTIME SC ; Start 12/06/18 at 21:00 Sodium Chloride 1,000 ml @ 100 mls/hr Q10H IV Last administered on 12/08/18at 04:44; Admin Dose 100 MLS/HR; Start 12/06/18 at 18:30 Miscellaneous Information 1 ea NOTE XX ; Start 12/06/18 at 19:00 Glucose (Glutose) 15 gm Q15M PRN PO DECREASED GLUCOSE; Start 12/06/18 at 19:00 Glucose (Glutose) 22.5 gm Q15M PRN PO DECREASED GLUCOSE; Start 12/06/18 at 19:00 Dextrose (D50w Syringe) 25 ml Q15M PRN IV DECREASED GLUCOSE; Start 12/06/18 at 19:00 Dextrose (D50w Syringe) 50 ml Q15M PRN IV DECREASED GLUCOSE; Start 12/06/18 at 19:00 Glucagon (Glucagen) 1 mg Q15M PRN IM DECREASED GLUCOSE; Start 12/06/18 at 19:00 Glucose (Glutose) 15 gm Q15M PRN BUCCAL DECREASED GLUCOSE; Start 12/06/18 at 19:00 PEREZ FREY Dec 08, 2018 10:16
[2018-12-08] MEDS: CEFTRIAXONE 1 GM/50 ML (PMX) 50 ML IVPB SCH (12:36)
[2018-12-08 14:35] VITALS: BP 121/69; PULSE 75; RESP 20
[2018-12-08 19:40] VITALS: BP 111/69; PULSE 72; RESP 18
[2018-12-08] MEDS: ATORVASTATIN 80 MG TAB PO SCH (20:34)
[2018-12-08] MEDS: INSULIN GLARGINE [LANTus] (100 UNITS/ML) SYG SC SCH (20:41)
[2018-12-09] MEDS: ACCU-CHEK XX SCH (02:00)
[2018-12-09 02:02] VITALS: BP 115/66; PULSE 66; RESP 16
[2018-12-09] MEDS: SOD CHLORIDE 0.9% 1,000 ML IV SCH ×4 (04:55→20:57)
[2018-12-09] MEDS: INSULIN ASPART [NOVOLOG] 3 ML PEN SC SCH ×7 (08:00→20:39)
[2018-12-09 08:09] VITALS: BP 145/78; PULSE 66; RESP 16
[2018-12-09] MEDS: HEPARIN 5,000 UNIT/1 ML VIAL SC SCH ×2 (08:18→20:42)
[2018-12-09] MEDS: GABAPENTIN 300 MG CAP PO SCH ×3 (08:20→20:39)
[2018-12-09] MEDS: ASPIRIN 81 MG TAB PO SCH (08:20)
[2018-12-09] MEDS: CEFTRIAXONE 1 GM/50 ML (PMX) 50 ML IVPB SCH (12:30)
[2018-12-09 14:36] VITALS: BP 130/68; PULSE 67; RESP 16
--- NOTE | 2018-12-09 15:23 | PN ---
Date/Time of Note Date/Time of Note DATE: 12/09/18 TIME: 15:22 Assessment/Plan VTE Prophylaxis Risk score (from Ns)>0 risk: 5 SCD applied (from Nsg): Yes Pharmacological prophylaxis: heparin Lines/Catheters IV Catheter Type (from Nrsg): Peripheral IV Urinary Cath still in place: No Assessment/Plan Hospital Course 1. Left great toe osteomyelitis with nonhealing ulcer The patient was recently hospitalized and underwent debridements and received IV antibiotics Cultures grew back group B strep, continue Rocephin Podiatry and vascular consultations appreciated, plan is for angiogram on Monday and further surgery with podiatry next week No evidence of sepsis at this time 2. Diabetes-poorly controlled Hold home p.o. meds Continue current scheduled insulin and sliding scale 3. Prerenal acute kidney injury Improved with IV fluids Continue IV fluids Monitor Prophylaxis: Heparin Result Diagram: 12/07/1852312/07/18523 Results 24hrs Laboratory Tests Test 12/08/18 17:22 12/08/18 20:30 12/09/18 08:15 12/09/18 12:31 Bedside Glucose 150 97 118 128 Subjective 24 Hr Interval Summary Constitutional: no complaints Exam/Review of Systems Exam Vitals Vital Signs Date Temp Pulse Resp B/P (MAP) Pulse Ox O2 O2 Flow FiO2 Time Delivery Rate 12/09/18 98.3 67 16 130/68 97 14:36 (88) 12/06/18 Room Air 18:24 Intake and Output 12/08/18 12/08/18 12/09/18 1515:00 23:00 07:00 IntakeIntake Total 500 ml 1970 ml 1400 ml OutputOutput Total 700 ml 1200 ml BalanceBalance 500 ml 1270 ml 200 ml Constitutional: alert, oriented Respiratory: clear to auscultation Cardiovascular: regular rate and rhythm Gastrointestinal: soft; No distended Musculoskeletal: No nl extremities to inspection Results Results 24hrs Laboratory Tests Test 12/08/18 17:22 12/08/18 20:30 12/09/18 08:15 12/09/18 12:31 Bedside Glucose 150 97 118 128 Medications Medication Current Medications IV Flush (NS 3 ml) 3 ml PER PROTOCOL IV ; Start 12/06/18 at 18:30 Ondansetron HCl (Zofran Inj) 4 mg Q6H PRN IV NAUSEA/VOMITING; Start 12/06/18 at 18:30 Acetaminophen (Tylenol Tab) 650 mg Q6H PRN PO .PAIN 1-3 OR TEMP; Start 12/06/18 at 18:30 Acetaminophen/ Hydrocodone Bitart ([place] (5/325)) 1 tab Q6H PRN PO .MOD PAIN 4- 6; Start 12/06/18 at 18:30 Morphine Sulfate (morphine) 2 mg Q4H PRN IV .SEVERE PAIN 7-10 Last administered on 12/06/18 21:01; Admin Dose 2 MG; Start 12/06/18 at 18:30 Docusate Sodium (Colace) 100 mg Q12H PRN PO .CONSTIPATION; Start 12/06/18 at 18:30 Zolpidem Tartrate (Ambien) 5 mg QHS PRN PO .INSOMNIA; Start 12/06/18 at 18:30 Heparin Sodium (Porcine) (Heparin (5000 Units/1ml)) 5,000 unit Q12 SC Last administered on 12/09/18 08:18; Admin Dose 5,000 UNIT; Start 12/06/18 at 21:00 Ceftriaxone Sodium 50 ml @ 100 mls/hr Q24H IVPB Last administered on 12/09/18 12:30; Admin Dose 100 MLS/HR; Start 12/07/18 at 13:00 Aspirin (Aspirin) 81 mg DAILY PO Last administered on 12/09/18 08:20; Admin Dose 81 MG; Start 12/07/18 at 09:00 Atorvastatin Calcium (Lipitor) 80 mg QHS PO Last administered on 12/08/18 20:34; Admin Dose 80 MG; Start 12/06/18 at 21:00 Gabapentin (Neurontin) 300 mg TID PO Last administered on 12/09/18 12:30; Admin Dose 300 MG; Start 12/06/18 at 21:00 Diagnostic Test (Pha) (Accu-Chek) 1 ea 02 XX ; Start 12/07/18 at 02:00 Insulin Glargine (Lantus) 20 units DAILY@2000 SC Last administered on 12/08/18 20:41; Admin Dose 20 UNITS; Start 12/06/18 at 20:00 Insulin Aspart (Novolog Insulin Pen) 7 unit WITH MEALS SC Last administered on 12/09/18 12:35; Admin Dose 7 UNIT; Start 12/07/18 at 08:00 Insulin Aspart (Novolog Insulin Pen) NOVOLOG *MILD* ALGORITHM WITH MEALS BEDTIME SC Last administered on 12/08/18at 17:27; Admin Dose 1 UNIT; Start 12/06/18 at 21:00 Sodium Chloride 1,000 ml @ 100 mls/hr Q10H IV Last administered on 12/09/18at 04:55; Admin Dose 100 MLS/HR; Start 12/06/18 at 18:30 Miscellaneous Information 1 ea NOTE XX ; Start 12/06/18 at 19:00 Glucose (Glutose) 15 gm Q15M PRN PO DECREASED GLUCOSE; Start 12/06/18 at 19:00 Glucose (Glutose) 22.5 gm Q15M PRN PO DECREASED GLUCOSE; Start 12/06/18 at 19:00 Dextrose (D50w Syringe) 25 ml Q15M PRN IV DECREASED GLUCOSE; Start 12/06/18 at 19:00 Dextrose (D50w Syringe) 50 ml Q15M PRN IV DECREASED GLUCOSE; Start 12/06/18 at 19:00 Glucagon (Glucagen) 1 mg Q15M PRN IM DECREASED GLUCOSE; Start 12/06/18 at 19:00 Glucose (Glutose) 15 gm Q15M PRN BUCCAL DECREASED GLUCOSE; Start 12/06/18 at 19:00 PEREZ FREY Dec 09, 2018 15:23
[2018-12-09 19:53] VITALS: BP 130/68; PULSE 68; RESP 18
[2018-12-09] MEDS: INSULIN GLARGINE [LANTus] (100 UNITS/ML) SYG SC SCH (20:00)
[2018-12-09] MEDS: HYDROCODONE/APAP (5/325) TAB PO PRN (20:39)
[2018-12-09] MEDS: ATORVASTATIN 80 MG TAB PO SCH (20:39)
[2018-12-09] MEDS ORDERED: INSULIN GLARGINE [LANTus] (100 UNITS/ML) SYG SC ONE (21:30)
[2018-12-10] VITALS (18 sets, daily range): BP systolic 107–157; BP diastolic 61–84; PULSE 60–76; RESP 13–18
[2018-12-10] MEDS: ACCU-CHEK XX SCH (02:00)
[2018-12-10] MEDS: SOD CHLORIDE 0.9% 1,000 ML IV SCH ×3 (02:30→22:30)
[2018-12-10] MEDS: INSULIN ASPART [NOVOLOG] 3 ML PEN SC SCH ×6 (06:00→17:31)
[2018-12-10] MEDS ORDERED: HEPARIN 1000 UNITS/ML 10 ML INJ ONE (07:23)
[2018-12-10] MEDS ORDERED: LIDOCAINE 1% (MDV) 20 ML INJ ONE (07:23)
[2018-12-10] MEDS ORDERED: HEPARIN 1000 UNITS/NS (A-LINE) 1,000 ML ONE (07:23)
[2018-12-10] MEDS ORDERED: IODIXANOL LOCM 100 ML BTL ONE (07:23)
[2018-12-10] MEDS ORDERED: MIDAZOLAM 1 MG/ML 2 ML INJ ONE (07:24)
[2018-12-10] MEDS ORDERED: FENTAnyl 50 MCG/ML VIAL ONE (07:24)
[2018-12-10] MEDS ORDERED: SOD CHLORIDE 0.9% 500 ML ONE (07:53)
--- NOTE | 2018-12-10 07:57 | SIPON ---
Date/Time of Note Date/Time of Note DATE: 12/10/18 TIME: 07:55 Operative Report Preoperative Diagnosis L 1st toe gangrene Postoperative Diagnosis same Operation/Procedure Performed aortogram, LLE runoff - BRADLEY and peroneal patent to ankle, POULTRY KILLER occluded mid calf , dorsalis pedis occluded, multiple collaterals from the peroneal and BRADLEY feeding the foot Surgeon see signature line teachers assistant none Second assist: A Anesthesia: moderate sedation Estimated blood loss: minimal Transfusion Required none Specimen none Grafts/Implants none Complications none ARIS FIELDS MD Dec 10, 2018 07:57
--- NOTE | 2018-12-10 08:57 | OPR ---
DATE OF OPERATION: 12/10/2018 PREOPERATIVE DIAGNOSIS: Left first toe gangrene. POSTOPERATIVE DIAGNOSIS: Left first toe gangrene. PROCEDURE PERFORMED: Aortogram with left lower extremity runoff with selective third order catheter placement from right common femoral to left SFA. SURGEON: Aris Chadwick MD ANESTHESIA: Local with sedation. ESTIMATED BLOOD LOSS: Minimal. COMPLICATIONS: No intraprocedural complications. INDICATIONS: A 63-year-old diabetic gentleman. He presented with gangrene and osteomyelitis of the left first toe tip and arterial studies that showed tibial disease. I brought him in today for an an giogram and possible intervention. DESCRIPTION OF PROCEDURE: The patient was brought to the laborer beam house, placed on the table in supine pos ition. Right groin was prepped and draped in the usual sterile fashion, using ultrasound to identify the right common femoral artery. It was widely patent with no filling defects, no calcifications, i nfiltrated over the artery using about 10 mL of 1% Xylocaine. I then used a micropuncture needle to enter the artery under ultrasound guidance. An 0.018 wire was inserted through the needle into the a rtery, then a micropuncture sheath was advanced over the wire into the artery. I then advanced an 0. 035 Bentson wire from the abdominal aorta, exchanged the micropuncture sheath for a 5-Syriac sheath o amy wire. I then advanced a rim catheter into the infrarenal aorta, did an aortogram then used an Ad vantage wire and the rim catheter to go up and over the bifurcation. I advanced the rim catheter ove r the wire down into the left superficial femoral artery and then did runoff down the left lower extr emity. FINDINGS OF ANGIOGRAPHY: The infrarenal aorta is widely patent. Both common external and internal i liac arteries are widely patent. The left common femoral, superficial femoral and profunda femoral a rteries were widely patent with no disease. The popliteal artery on the left is widely patent with n o disease below the knee. There is initially 3-vessel runoff. The posterior tibial is very small an d occludes in the upper calf. It does not reconstitute distally. The anterior tibial and peroneal a rteries are widely patent and go all the way down to the ankle and just across the ankle in the foot. The dorsalis pedis was occluded and the peroneal gives off multiple collaterals and it filled so th e plantar circulation, but there is no reconstitution of the posterior tibial and no named plantar ve ssel noted in the foot either. There are multiple collaterals filling the pedal arch, but the dorsal is pedis is gone, so there really was not a target vessel to open into. There are multiple collatera ls coming off of the anterior tibial, right where the dorsalis pedis occluded. It looks like possibl y he could have had an embolic event where he had a small embolus to the dorsalis pedis which has occ luded it but I did not see any way to go across it. There really wasn't anything distally and there were multiple good collaterals filling the forefoot. No intervention was performed. The catheter sh eaths and wires were removed, and manual pressure was used for hemostasis in the right groin. Karen antonio was transferred to recovery room in stable condition. He tolerated the procedure well without any complication. From a vascular standpoint he is optimized as he is going to get. I think he would he al amputation of the toe if it is needed. Decision was just treat with IV antibiotics mcfp. I w ill follow him along with you as well. Dictated By: ARIS GALAVIZ/NTS Conf#: [id number] DID#: [id number] CC: PEREZ FREY MD; MATTHEW GIRALDO;*End*
[2018-12-10] MEDS: ASPIRIN 81 MG TAB PO SCH (09:44)
[2018-12-10] MEDS: HEPARIN 5,000 UNIT/1 ML VIAL SC SCH ×2 (09:44→20:47)
[2018-12-10] MEDS: GABAPENTIN 300 MG CAP PO SCH ×3 (09:44→20:43)
[2018-12-10] MEDS ORDERED: LACTATED RINGER'S 1,000 ML IV SCH (10:00)
[2018-12-10] MEDS: CEFTRIAXONE 1 GM/50 ML (PMX) 50 ML IVPB SCH (13:01)
--- NOTE | 2018-12-10 15:31 | PN ---
Date/Time of Note Date/Time of Note DATE: 12/10/18 TIME: 15:27 Assessment/Plan VTE Prophylaxis Risk score (from Ns)>0 risk: 4 SCD applied (from Ns): Yes Pharmacological prophylaxis: heparin Lines/Catheters IV C[facility]ter Type (from [facility]): Peripheral IV Urinary Cath still in place: No Assessment/Plan Assessment/Plan 1. Left great toe osteomyelitis with nonhealing ulcer, on antibiotics 2. Peripheral vascular disease, s/p angiography 12/10/2018, follow up with Dr. Dubois 3. Diabetes mellitus, controlled, in insulin 4. Prophylaxis: Heparin Result Diagram: 12/07/1852312/07/18523 Results 24hrs Laboratory Tests Test 12/09/18 17:24 12/09/18 20:34 12/10/18 05:49 12/10/18 09:39 Bedside Glucose 146 154 126 133 Test 12/10/18 12:57 Bedside Glucose 176 Subjective 24 Hr Interval Summary Free Text/Dictation afebrile Exam/Review of Systems Exam Vitals Vital Signs Date Temp Pulse Resp B/P (MAP) Pulse Ox O2 O2 Flow FiO2 Time Delivery Rate 12/10/18 97.9 76 16 107/61 97 13:56 (76) 12/10/18 Room Air 09:26 Intake and Output 12/09/18 12/09/18 12/10/18 1414:59 22:59 06:59 IntakeIntake Total 910 ml 2080 ml 600 ml OutputOutput Total 1800 ml 2100 ml 1100 ml BalanceBalance -890 ml -20 ml -500 ml Constitutional: alert, oriented, well developed Psych: no complaints, nl mood/affect Head: normocephalic, atraumatic Eyes: nl conjunctiva, EOMI, nl lids, PERRL ENMT: nl external ears & nose, nl lips & teeth, nl nasal mucosa & septum Neck: supple, non-tender Respiratory: clear to auscultation, normal air movement; No congested cough, No crackles/rales, No diminished breath sounds, No intercostal retraction, No labored breathing, No respirations, No tactile fremitus, No wheezing, No other Cardiovascular: regular rate and rhythm, nl pulses; No bruits, No diastolic murmur, No edema, No gallop, No irregular rhythm, No jugular venous distention (JVD), No murmurs/extra sounds, No rub, No systolic murmur, No S3, No S4, No other Gastrointestinal: soft, nl liver, spleen, non-tender Extremities: other (left great toe gangrene) Neurological: SET O TYPE OPERATOR II-XII intact, nl mental status, nl speech, nl strength Results Results 24hrs Laboratory Tests Test 12/09/18 17:24 12/09/18 20:34 12/10/18 05:49 12/10/18 09:39 Bedside Glucose 146 154 126 133 Test 12/10/18 12:57 Bedside Glucose 176 Medications Medication Current Medications IV Flush (NS 3 ml) 3 ml PER PROTOCOL IV ; Start 12/06/18 at 18:30 Ondansetron HCl (Zofran Inj) 4 mg Q6H PRN IV NAUSEA/VOMITING; Start 12/06/18 at 18:30 Acetaminophen (Tylenol Tab) 650 mg Q6H PRN PO .PAIN 1-3 OR TEMP; Start 12/06/18 at 18:30 Acetaminophen/ Hydrocodone Bitart ([place] (5/325)) 1 tab Q6H PRN PO .MOD PAIN 4- 6 Last administered on 12/09/18at 20:39; Admin Dose 1 TAB; Start 12/06/18 at 18:30 Morphine Sulfate (morphine) 2 mg Q4H PRN IV .SEVERE PAIN 7-10 Last administered on 12/06/18at 21:01; Admin Dose 2 MG; Start 12/06/18 at 18:30 Docusate Sodium (Colace) 100 mg Q12H PRN PO .CONSTIPATION; Start 12/06/18 at 18:30 Zolpidem Tartrate (Ambien) 5 mg QHS PRN PO .INSOMNIA; Start 12/06/18 at 18:30 Heparin Sodium (Porcine) (Heparin (5000 Units/1ml)) 5,000 unit Q12 SC Last administered on 12/10/18 09:44; Admin Dose 5,000 UNIT; Start 12/06/18 at 21:00 Ceftriaxone Sodium 50 ml @ 100 mls/hr Q24H IVPB Last administered on 12/10/18 13:01; Admin Dose 100 MLS/HR; Start 12/07/18 at 13:00 Aspirin (Aspirin) 81 mg DAILY PO Last administered on 2/18/19at 09:44; Admin Dose 81 MG; Start 12/07/18 at 09:00 Atorvastatin Calcium (Lipitor) 80 mg QHS PO Last administered on 12/09/18at 20:39; Admin Dose 80 MG; Start 12/06/18 at 21:00 Gabapentin (Neurontin) 300 mg TID PO Last administered on 12/10/18at 13:01; Admin Dose 300 MG; Start 12/06/18 at 21:00 Diagnostic Test (Pha) (Accu-Chek) 1 ea 02 XX ; Start 12/07/18 at 02:00 Insulin Glargine (Lantus) 20 units DAILY@2000 SC Last administered on 12/08/18at 20:41; Admin Dose 20 UNITS; Start 12/06/18 at 20:00 Insulin Aspart (Novolog Insulin Pen) 7 unit WITH MEALS SC Last administered on 12/10/18at 12:59; Admin Dose 7 UNIT; Start 12/07/18 at 08:00 Sodium Chloride 1,000 ml @ 100 mls/hr Q10H IV Last administered on 12/10/18at 13:01; Admin Dose 100 MLS/HR; Start 12/06/18 at 18:30 Miscellaneous Information 1 ea NOTE XX ; Start 12/06/18 at 19:00 Glucose (Glutose) 15 gm Q15M PRN PO DECREASED GLUCOSE; Start 12/06/18 at 19:00 Glucose (Glutose) 22.5 gm Q15M PRN PO DECREASED GLUCOSE; Start 12/06/18 at 19:00 Dextrose (D50w Syringe) 25 ml Q15M PRN IV DECREASED GLUCOSE; Start 12/06/18 at 19:00 Dextrose (D50w Syringe) 50 ml Q15M PRN IV DECREASED GLUCOSE; Start 12/06/18 at 19:00 Glucagon (Glucagen) 1 mg Q15M PRN IM DECREASED GLUCOSE; Start 12/06/18 at 19:00 Glucose (Glutose) 15 gm Q15M PRN BUCCAL DECREASED GLUCOSE; Start 12/06/18 at 19:00 Insulin Aspart (Novolog Insulin Pen) (Adult SC Insulin - Mild Algorithm)... AC MEALS AND BEDTIME SC ; Start 12/10/18 at 17:30 ROSA FRIEDMAN MD Dec 10, 2018 15:31
[2018-12-10] MEDS: Insulin NOVOLOG SS MILD Algorithm (SS with meals and bedtime) SC SCH ×2 (17:30→20:44)
[2018-12-10] MEDS ORDERED: INSULIN ASPART [NOVOLOG] 3 ML PEN SC SCH (17:30)
[2018-12-10] MEDS: ATORVASTATIN 80 MG TAB PO SCH (20:43)
[2018-12-10] MEDS: INSULIN GLARGINE [LANTus] (100 UNITS/ML) SYG SC SCH (20:46)
[2018-12-11 01:39] VITALS: BP 134/63; PULSE 66; RESP 17
[2018-12-11] MEDS: ACCU-CHEK XX SCH (02:00)
[2018-12-11] MEDS: SOD CHLORIDE 0.9% 1,000 ML IV SCH ×3 (06:11→17:42)
[2018-12-11] MEDS: Insulin NOVOLOG SS MILD Algorithm (SS with meals and bedtime) SC SCH ×4 (07:00→20:47)
[2018-12-11 07:26] VITALS: BP 107/60; PULSE 63; RESP 17
[2018-12-11] MEDS: INSULIN ASPART [NOVOLOG] 3 ML PEN SC SCH ×3 (08:43→17:46)
[2018-12-11] MEDS: HEPARIN 5,000 UNIT/1 ML VIAL SC SCH ×2 (08:45→20:48)
[2018-12-11] MEDS: GABAPENTIN 300 MG CAP PO SCH ×3 (08:47→20:43)
[2018-12-11] MEDS: ASPIRIN 81 MG TAB PO SCH (08:47)
[2018-12-11] MEDS: CEFTRIAXONE 1 GM/50 ML (PMX) 50 ML IVPB SCH (13:16)
[2018-12-11] MEDS: HYDROCODONE/APAP (5/325) TAB PO PRN ×2 (13:20→20:52)
--- NOTE | 2018-12-11 13:48 | PN ---
Date/Time of Note Date/Time of Note DATE: 12/11/18 TIME: 13:47 Assessment/Plan VTE Prophylaxis Risk score (from Nsg)>0 risk: 3 SCD applied (from Ns): Yes Pharmacological prophylaxis: heparin Lines/Catheters IV Catheter Type (from Nrsg): Peripheral IV Urinary Cath still in place: No Assessment/Plan Assessment/Plan 1. Left great toe osteomyelitis with nonhealing ulcer, on antibiotics, follow up with podiatry 2. Peripheral vascular disease, follow up with Dr. Dubois 3. Diabetes mellitus, controlled, in insulin 4. Prophylaxis: Heparin Result Diagram: 12/11/1860212/11/18602 Results 24hrs Laboratory Tests Test 12/10/18 17:29 12/10/18 20:42 12/11/18 06:03 12/11/18 08:02 Bedside Glucose 135 156 130 White Blood Count 8.1 # Red Blood Count 4.20 L Hemoglobin 12.1 L Hematocrit 36.7 L Mean Corpuscular 87.4 Volume Mean Corpuscular 28.8 L Hemoglobin Mean Corpuscular 33.0 Hemoglobin Concent Red Cell 12.5 Distribution Width Platelet Count 351 Mean Platelet Volume 8.9 Immature 0.100 Granulocytes % Neutrophils % 58.2 Lymphocytes % 29.4 Monocytes % 8.2 Eosinophils % 3.6 Basophils % 0.5 Nucleated Red Blood 0.0 Cells % Immature 0.010 Granulocytes # Neutrophils # 4.7 Lymphocytes # 2.4 Monocytes # 0.7 Eosinophils # 0.3 Basophils # 0.0 Nucleated Red Blood 0.0 Cells # Sodium Level 140 Potassium Level 4.1 Chloride Level 101 Carbon Dioxide Level 26 Anion Gap 13 Blood Urea Nitrogen 18 Creatinine 0.77 Est Glomerular > 60 Filtrat Rate mL/min Glucose Level 151 Calcium Level 9.2 Test 12/11/18 13:12 Bedside Glucose 110 Subjective 24 Hr Interval Summary Free Text/Dictation no pain. no fever or chills Exam/Review of Systems Exam Vitals Vital Signs Date Temp Pulse Resp B/P (MAP) Pulse Ox O2 O2 Flow FiO2 Time Delivery Rate 12/11/18 98.4 63 17 107/60 97 Room Air 07:26 (76) Intake and Output 12/10/18 12/10/18 12/11/18 1515:00 23:00 07:00 IntakeIntake Total 1045 ml 1150 ml 800 ml OutputOutput Total 600 ml 400 ml 902 ml BalanceBalance 445 ml 750 ml -102 ml Constitutional: alert, oriented, well developed Psych: no complaints, nl mood/affect Head: normocephalic, atraumatic Eyes: nl conjunctiva, EOMI, nl lids, PERRL ENMT: nl external ears & nose, nl lips & teeth, nl nasal mucosa & septum Neck: supple Respiratory: clear to auscultation, normal air movement; No congested cough, No crackles/rales, No diminished breath sounds, No intercostal retraction, No labored breathing, No respirations, No tactile fremitus, No wheezing, No other Cardiovascular: regular rate and rhythm, nl pulses; No bruits, No diastolic murmur, No edema, No gallop, No irregular rhythm, No jugular venous distention (JVD), No murmurs/extra sounds, No rub, No systolic murmur, No S3, No S4, No other Gastrointestinal: soft, nl liver, spleen, non-tender Musculoskeletal: other (left great toe lesion/wound) Neurological: CRYPTOGRAPHIC CLERK II-XII intact, nl mental status, nl speech, nl strength Results Results 24hrs Laboratory Tests Test 12/10/18 17:29 12/10/18 20:42 12/11/18 06:03 12/11/18 08:02 Bedside Glucose 135 156 130 White Blood Count 8.1 # Red Blood Count 4.20 L Hemoglobin 12.1 L Hematocrit 36.7 L Mean Corpuscular 87.4 Volume Mean Corpuscular 28.8 L Hemoglobin Mean Corpuscular 33.0 Hemoglobin Concent Red Cell 12.5 Distribution Width Platelet Count 351 Mean Platelet Volume 8.9 Immature 0.100 Granulocytes % Neutrophils % 58.2 Lymphocytes % 29.4 Monocytes % 8.2 Eosinophils % 3.6 Basophils % 0.5 Nucleated Red Blood 0.0 Cells % Immature 0.010 Granulocytes # Neutrophils # 4.7 Lymphocytes # 2.4 Monocytes # 0.7 Eosinophils # 0.3 Basophils # 0.0 Nucleated Red Blood 0.0 Cells # Sodium Level 140 Potassium Level 4.1 Chloride Level 101 Carbon Dioxide Level 26 Anion Gap 13 Blood Urea Nitrogen 18 Creatinine 0.77 Est Glomerular > 60 Filtrat Rate mL/min Glucose Level 151 Calcium Level 9.2 Test 12/11/18 13:12 Bedside Glucose 110 Medications Medication Current Medications IV Flush (NS 3 ml) 3 ml PER PROTOCOL IV ; Start 12/06/18 at 18:30 Ondansetron HCl (Zofran Inj) 4 mg Q6H PRN IV NAUSEA/VOMITING; Start 12/06/18 at 18:30 Acetaminophen (Tylenol Tab) 650 mg Q6H PRN PO .PAIN 1-3 OR TEMP; Start 12/06/18 at 18:30 Acetaminophen/ Hydrocodone Bitart ([place] (5/325)) 1 tab Q6H PRN PO .MOD PAIN 4- 6 Last administered on 12/11/18 13:20; Admin Dose 1 TAB; Start 12/06/18 at 18:30 Morphine Sulfate (morphine) 2 mg Q4H PRN IV .SEVERE PAIN 7-10 Last administered on 12/06/18 21:01; Admin Dose 2 MG; Start 12/06/18 at 18:30 Docusate Sodium (Colace) 100 mg Q12H PRN PO .CONSTIPATION; Start 12/06/18 at 18:30 Zolpidem Tartrate (Ambien) 5 mg QHS PRN PO .INSOMNIA; Start 12/06/18 at 18:30 Heparin Sodium (Porcine) (Heparin (5000 Units/1ml)) 5,000 unit Q12 SC Last administered on 12/11/18 08:45; Admin Dose 5,000 UNIT; Start 12/06/18 at 21:00 Ceftriaxone Sodium 50 ml @ 100 mls/hr Q24H IVPB Last administered on 12/11/18 13:16; Admin Dose 100 MLS/HR; Start 12/07/18 at 13:00 Aspirin (Aspirin) 81 mg DAILY PO Last administered on 12/11/18 08:47; Admin Dose 81 MG; Start 12/07/18 at 09:00 Atorvastatin Calcium (Lipitor) 80 mg QHS PO Last administered on 12/10/18 20:43; Admin Dose 80 MG; Start 12/06/18 at 21:00 Gabapentin (Neurontin) 300 mg TID PO Last administered on 12/11/18 13:20; Admin Dose 300 MG; Start 12/06/18 at 21:00 Diagnostic Test (Pha) (Accu-Chek) 1 ea 02 XX ; Start 12/07/18 at 02:00 Insulin Glargine (Lantus) 20 units DAILY@2000 SC Last administered on 12/10/18at 20:46; Admin Dose 20 UNITS; Start 12/06/18 at 20:00 Insulin Aspart (Novolog Insulin Pen) 7 unit WITH MEALS SC Last administered on 12/11/18at 13:19; Admin Dose 7 UNIT; Start 12/07/18 at 08:00 Sodium Chloride 1,000 ml @ 100 mls/hr Q10H IV Last administered on 12/11/18at 06:11; Admin Dose 100 MLS/HR; Start 12/06/18 at 18:30 Miscellaneous Information 1 ea NOTE XX ; Start 12/06/18 at 19:00 Glucose (Glutose) 15 gm Q15M PRN PO DECREASED GLUCOSE; Start 12/06/18 at 19:00 Glucose (Glutose) 22.5 gm Q15M PRN PO DECREASED GLUCOSE; Start 12/06/18 at 19:00 Dextrose (D50w Syringe) 25 ml Q15M PRN IV DECREASED GLUCOSE; Start 12/06/18 at 19:00 Dextrose (D50w Syringe) 50 ml Q15M PRN IV DECREASED GLUCOSE; Start 12/06/18 at 19:00 Glucagon (Glucagen) 1 mg Q15M PRN IM DECREASED GLUCOSE; Start 12/06/18 at 19:00 Glucose (Glutose) 15 gm Q15M PRN BUCCAL DECREASED GLUCOSE; Start 12/06/18 at 19:00 Insulin Aspart (Novolog Insulin Pen) (Adult SC Insulin - Mild Algorithm)... AC MEALS AND BEDTIME SC ; Start 12/10/18 at 17:30 ROSA FRIEDMAN MD Dec 11, 2018 13:48
[2018-12-11 14:05] VITALS: BP 125/74; PULSE 100; RESP 16
[2018-12-11 14:13] VITALS: BP 140/80; PULSE 74; RESP 18
[2018-12-11] MEDS ORDERED: morphine LIQ (10 MG/5 ML) CUP PO PRN (16:30)
--- NOTE | 2018-12-11 19:34 | PN ---
DATE: 12/11/2018 SUBJECTIVE: The patient is being followed for left hallux ulceration with gangrene and osteomyelitis . The patient is status post aortogram with the left lower extremity angiogram. The patient denies any fever, nausea, vomiting. OBJECTIVE: VITAL SIGNS: Temperature 98, pulse is 74, respiratory rate is 18, blood pressure is 140/80, pulse ox is 98 on room air. EXTREMITIES: Left foot is warm. Pedal hair in dorsal aspect. There is gangrene to the distal plant ar aspect of the left hallux of undetermined depth. Mycotic nail. No cellulitis or lymphangitis. T here is mild to moderate edema of the toe and foot. Adjacent toes are normal color, texture and turg or. LABORATORIES: WBC 8.1, hemoglobin 12.1, hematocrit 36.7, platelets 351. Sed rate is 96. Sodium 140 , potassium 4.1, chloride 101, CO2 of 26, BUN 18, creatinine is 0.7. DIAGNOSTIC DATA: Foot x-ray: Osteomyelitis of the great toe distal phalanx, left foot. ASSESSMENT: 1. Left foot gangrene. 2. Left foot osteomyelitis of distal phalanx. 3. Diabetic foot ulceration. PLAN: The patient is being scheduled for operative intervention for debridement of ulceration, possi ble partial hallux amputation, possible allograft application. I discussed with plan with patient in Greek. All questions were answered to his satisfaction. The patient will be kept n.p.o. and furt her coordination of care with the operating room. Dictated By: GUIDO PATRICIO DPM RB/ONUR Conf#: [id number] DID#: [id number] CC: MATTHEW GIRALDO DPM; PEREZ FREY MD;*EndCC*
[2018-12-11 20:24] VITALS: BP 144/73; PULSE 71; RESP 18
[2018-12-11] MEDS: ATORVASTATIN 80 MG TAB PO SCH (20:43)
[2018-12-11] MEDS: INSULIN GLARGINE [LANTus] (100 UNITS/ML) SYG SC SCH (20:48)
[2018-12-12] VITALS (8 sets, daily range): BP systolic 110–161; BP diastolic 70–83; PULSE 63–74; RESP 11–19
[2018-12-12] MEDS: ACCU-CHEK XX SCH (02:00)
[2018-12-12] MEDS: SOD CHLORIDE 0.9% 1,000 ML IV SCH ×2 (03:39→15:08)
[2018-12-12] MEDS ORDERED: CEFAZOLIN 1 GM INJ ONE (07:00)
[2018-12-12] MEDS ORDERED: SEVOFLURANE 15 MIN ONE (07:00)
[2018-12-12] MEDS ORDERED: LIDOCAINE 2% (SDV) 5 ML INJ ONE (07:00)
[2018-12-12] MEDS: INSULIN ASPART [NOVOLOG] 3 ML PEN SC SCH ×3 (07:39→18:00)
[2018-12-12] MEDS: ASPIRIN 81 MG TAB PO SCH (07:39)
[2018-12-12] MEDS: HEPARIN 5,000 UNIT/1 ML VIAL SC SCH ×2 (07:40→19:48)
[2018-12-12] MEDS: GABAPENTIN 300 MG CAP PO SCH ×3 (07:46→19:43)
[2018-12-12] MEDS: Insulin NOVOLOG SS MILD Algorithm (SS with meals and bedtime) SC SCH ×4 (07:48→19:48)
[2018-12-12] MEDS: CEFTRIAXONE 1 GM/50 ML (PMX) 50 ML IVPB SCH (12:01)
[2018-12-12] MEDS: HYDROCODONE/APAP (5/325) TAB PO PRN (12:10)
[2018-12-12] MEDS ORDERED: MIDAZOLAM 1 MG/ML 2 ML INJ ONE (16:00)
[2018-12-12] MEDS ORDERED: FENTAnyl 50 MCG/ML VIAL ONE (16:00)
[2018-12-12] MEDS ORDERED: PROPOFOL 20 ML ONE (16:01)
[2018-12-12] MEDS ORDERED: METOCLOPRAMIDE 10 MG INJ ONE (16:02)
[2018-12-12] MEDS ORDERED: ROPIVACAINE 0.5 % 30 ML VIAL ONE (16:03)
--- NOTE | 2018-12-12 16:17 | PN ---
Date/Time of Note Date/Time of Note DATE: 12/12/18 TIME: 16:16 Assessment/Plan VTE Prophylaxis Risk score (from Ns)>0 risk: 4 SCD applied (from Ns): Yes Pharmacological prophylaxis: heparin Lines/Catheters [facility] Peripheral IV Urinary Cath still in place: No Assessment/Plan Assessment/Plan 1. Left great toe osteomyelitis with nonhealing ulcer, on antibiotics, surgical debridement today 2. Peripheral vascular disease, follow up with Dr. Dubois 3. Diabetes mellitus, controlled, in insulin 4. Prophylaxis: Heparin Result Diagram: 12/11/18 0603 12/11/18 0603 Results 24hrs Laboratory Tests Test 12/11/18 17:41 12/11/18 20:41 12/12/18 03:41 12/12/18 07:46 Bedside Glucose 116 197 153 144 Test 12/12/18 11:57 Bedside Glucose 131 Subjective 24 Hr Interval Summary Free Text/Dictation afebrile Exam/Review of Systems Exam Vitals Vital Signs Date Temp Pulse Resp B/P (MAP) Pulse Ox O2 O2 Flow FiO2 Time Delivery Rate 12/12/18 98.1 63 18 151/83 98 14:03 (105) 12/11/18 Room Air 14:13 Intake and Output 12/11/18 12/11/18 12/12/18 1515:00 23:00 07:00 IntakeIntake Total 650 ml 1380 ml 1300 ml OutputOutput Total 400 ml 700 ml 1400 ml BalanceBalance 250 ml 680 ml -100 ml Constitutional: alert, oriented, well developed Psych: no complaints, nl mood/affect Head: normocephalic, atraumatic Eyes: nl conjunctiva, EOMI, nl lids, PERRL ENMT: nl external ears & nose, nl lips & teeth, nl nasal mucosa & septum Neck: supple, non-tender Respiratory: clear to auscultation, normal air movement; No congested cough, No crackles/rales, No diminished breath sounds, No intercostal retraction, No labored breathing, No respirations, No tactile fremitus, No wheezing, No other Cardiovascular: regular rate and rhythm, nl pulses; No bruits, No diastolic murmur, No edema, No gallop, No irregular rhythm, No jugular venous distention (JVD), No murmurs/extra sounds, No rub, No systolic murmur, No S3, No S4, No other Gastrointestinal: soft, nl liver, spleen, non-tender Extremities: other (left great toe wound) Neurological: SOCIOCULTURAL ANTHROPOLOGY PROFESSOR II-XII intact, nl mental status, nl speech, nl strength Results Results 24hrs Laboratory Tests Test 12/11/18 17:41 12/11/18 20:41 12/12/18 03:41 12/12/18 07:46 Bedside Glucose 116 197 153 144 Test 12/12/18 11:57 Bedside Glucose 131 Medications Medication Current Medications IV Flush (NS 3 ml) 3 ml PER PROTOCOL IV ; Start 12/06/18 at 18:30 Ondansetron HCl (Zofran Inj) 4 mg Q6H PRN IV NAUSEA/VOMITING; Start 12/06/18 at 18:30 Acetaminophen (Tylenol Tab) 650 mg Q6H PRN PO .PAIN 1-3 OR TEMP; Start 12/06/18 at 18:30 Acetaminophen/ Hydrocodone Bitart ([place] (5/325)) 1 tab Q6H PRN PO .MOD PAIN 4- 6 Last administered on 12/12/18at 12:10; Admin Dose 1 TAB; Start 12/06/18 at 18:30 Docusate Sodium (Colace) 100 mg Q12H PRN PO .CONSTIPATION; Start 12/06/18 at 18:30 Zolpidem Tartrate (Ambien) 5 mg QHS PRN PO .INSOMNIA; Start 12/06/18 at 18:30 Heparin Sodium (Porcine) (Heparin (5000 Units/1ml)) 5,000 unit Q12 SC Last administered on 12/11/18at 20:48; Admin Dose 5,000 UNIT; Start 12/06/18 at 21:00 Ceftriaxone Sodium 50 ml @ 100 mls/hr Q24H IVPB Last administered on 12/12/18at 12:01; Admin Dose 100 MLS/HR; Start 12/07/18 at 13:00 Aspirin (Aspirin) 81 mg DAILY PO Last administered on 12/11/18at 08:47; Admin Dose 81 MG; Start 12/07/18 at 09:00 Atorvastatin Calcium (Lipitor) 80 mg QHS PO Last administered on 12/11/18at 20:43; Admin Dose 80 MG; Start 12/06/18 at 21:00 Gabapentin (Neurontin) 300 mg TID PO Last administered on 12/12/18at 12:05; Admin Dose 300 MG; Start 12/06/18 at 21:00 Diagnostic Test (Pha) (Accu-Chek) 1 ea 02 XX ; Start 12/07/18 at 02:00 Insulin Glargine (Lantus) 20 units DAILY@2000 SC Last administered on 12/11/18at 20:48; Admin Dose 20 UNITS; Start 12/06/18 at 20:00 Insulin Aspart (Novolog Insulin Pen) 7 unit WITH MEALS SC Last administered on 12/11/18at 17:46; Admin Dose 7 UNIT; Start 12/07/18 at 08:00 Sodium Chloride 1,000 ml @ 100 mls/hr Q10H IV Last administered on 12/12/18at 15:08; Admin Dose 100 MLS/HR; Start 12/06/18 at 18:30 Miscellaneous Information 1 ea NOTE XX ; Start 12/06/18 at 19:00 Glucose (Glutose) 15 gm Q15M PRN PO DECREASED GLUCOSE; Start 12/06/18 at 19:00 Glucose (Glutose) 22.5 gm Q15M PRN PO DECREASED GLUCOSE; Start 12/06/18 at 19:00 Dextrose (D50w Syringe) 25 ml Q15M PRN IV DECREASED GLUCOSE; Start 12/06/18 at 19:00 Dextrose (D50w Syringe) 50 ml Q15M PRN IV DECREASED GLUCOSE; Start 12/06/18 at 19:00 Glucagon (Glucagen) 1 mg Q15M PRN IM DECREASED GLUCOSE; Start 12/06/18 at 19:00 Glucose (Glutose) 15 gm Q15M PRN BUCCAL DECREASED GLUCOSE; Start 12/06/18 at 19:00 Insulin Aspart (Novolog Insulin Pen) (Adult SC Insulin - Mild Algorithm)... AC MEALS AND BEDTIME SC Last administered on 12/12/18at 07:48; Admin Dose 1 UNIT; Start 12/10/18 at 17:30 Morphine Sulfate (morphine) 6 mg Q4H PRN PO SEVERE PAIN LEVEL 7-10; Start 12/11/18 at 16:30 ROSA FRIEDMAN MD Dec 12, 2018 16:17
--- NOTE | 2018-12-12 16:26 | PREAC ---
Date/Time of Note Date/Time of Note DATE: 12/12/18 TIME: 16:25 Anesthesia Eval and Record Evaluation Time Pre-Procedure Interview DATE: 12/12/18 TIME: 16:25 Age 63 Sex male NPO: 8 hrs Preoperative diagnosis L hallux osteomyelitis Planned procedure L hallux amputation Past Medical History Past Medical History: Includes Cardio: HTN Endo: Diabetes Musculoskeletal: Other (L 1st toe osteo) Renal: VARUN Surgery & Anesthesia Issues No known issue Meds Anticoagulation: No Beta Tyrel within 24 hr: No Reason Beta Tyrel not given: Pt. not on B-Tyrel Active Scripts Glimepiride* (Glimepiride*) 1 Mg Tablet, 1 MG PO WITH BREAKFAST for 30 Days, #30 TAB Prov:JANELLE LUNA MD 11/28/18 Ciprofloxacin Hcl* (Ciprofloxacin Hcl*) 750 Mg Tablet, 750 MG PO BID for 30 Days, #60 TAB Prov:JANELLE LUNA MD 11/28/18 Sulfamethoxazole/Trimethoprim* (Bactrim Ds* Tablet) 1 Each Tablet, 1 TAB PO BID for 30 Days, #60 TAB Prov:JANELLE LUNA MD 11/28/18 Reported Medications Aspirin* (Aspirin* Chew) 81 Mg Tab.chew, 81 MG PO DAILY, TAB.CHEW 11/26/18 Atorvastatin* (Atorvastatin*) 80 Mg Tablet, 80 MG PO QHS, #30 TAB 11/26/18 Metformin* (Glucophage*) 1,000 Mg Tablet, 1000 MG PO BID, #60 TAB 11/26/18 Gabapentin* (Gabapentin*) 300 Mg Capsule, 300 MG PO TID, #90 CAP 11/26/18 Current Medications IV Flush (NS 3 ml) 3 ml PER PROTOCOL IV ; Start 12/06/18 at 18:30 Ondansetron HCl (Zofran Inj) 4 mg Q6H PRN IV NAUSEA/VOMITING; Start 12/06/18 at 18:30 Acetaminophen (Tylenol Tab) 650 mg Q6H PRN PO .PAIN 1-3 OR TEMP; Start 12/06/18 at 18:30 Acetaminophen/ Hydrocodone Bitart ([place] (5/325)) 1 tab Q6H PRN PO .MOD PAIN 4- 6 Last administered on 12/12/18at 12:10; Admin Dose 1 TAB; Start 12/06/18 at 18:30 Docusate Sodium (Colace) 100 mg Q12H PRN PO .CONSTIPATION; Start 12/06/18 at 18:30 Zolpidem Tartrate (Ambien) 5 mg QHS PRN PO .INSOMNIA; Start 12/06/18 at 18:30 Heparin Sodium (Porcine) (Heparin (5000 Units/1ml)) 5,000 unit Q12 SC Last administered on 12/11/18at 20:48; Admin Dose 5,000 UNIT; Start 12/06/18 at 21:00 Ceftriaxone Sodium 50 ml @ 100 mls/hr Q24H IVPB Last administered on 12/12/18 12:01; Admin Dose 100 MLS/HR; Start 12/07/18 at 13:00 Aspirin (Aspirin) 81 mg DAILY PO Last administered on 12/11/18 08:47; Admin Dose 81 MG; Start 12/07/18 at 09:00 Atorvastatin Calcium (Lipitor) 80 mg QHS PO Last administered on 12/11/18at 20:43; Admin Dose 80 MG; Start 12/06/18 at 21:00 Gabapentin (Neurontin) 300 mg TID PO Last administered on 12/12/18at 12:05; Admin Dose 300 MG; Start 12/06/18 at 21:00 Diagnostic Test (Pha) (Accu-Chek) 1 ea 02 XX ; Start 12/07/18 at 02:00 Insulin Glargine (Lantus) 20 units DAILY@2000 SC Last administered on 12/11/18 20:48; Admin Dose 20 UNITS; Start 12/06/18 at 20:00 Insulin Aspart (Novolog Insulin Pen) 7 unit WITH MEALS SC Last administered on 12/11/18at 17:46; Admin Dose 7 UNIT; Start 12/07/18 at 08:00 Sodium Chloride 1,000 ml @ 100 mls/hr Q10H IV Last administered on 12/12/18at 15:08; Admin Dose 100 MLS/HR; Start 12/06/18 at 18:30 Miscellaneous Information 1 ea NOTE XX ; Start 12/06/18 at 19:00 Glucose (Glutose) 15 gm Q15M PRN PO DECREASED GLUCOSE; Start 12/06/18 at 19:00 Glucose (Glutose) 22.5 gm Q15M PRN PO DECREASED GLUCOSE; Start 12/06/18 at 19:00 Dextrose (D50w Syringe) 25 ml Q15M PRN IV DECREASED GLUCOSE; Start 12/06/18 at 19:00 Dextrose (D50w Syringe) 50 ml Q15M PRN IV DECREASED GLUCOSE; Start 12/06/18 at 19:00 Glucagon (Glucagen) 1 mg Q15M PRN IM DECREASED GLUCOSE; Start 12/06/18 at 19:00 Glucose (Glutose) 15 gm Q15M PRN BUCCAL DECREASED GLUCOSE; Start 12/06/18 at 19:00 Insulin Aspart (Novolog Insulin Pen) (Adult SC Insulin - Mild Algorithm)... AC MEALS AND BEDTIME SC Last administered on 12/12/18at 07:48; Admin Dose 1 UNIT; Start 12/10/18 at 17:30 Morphine Sulfate (morphine) 6 mg Q4H PRN PO SEVERE PAIN LEVEL 7-10; Start 12/11/18 at 16:30 Meds reviewed: Yes Allergies Coded Allergies: No Known Allergy (Unverified , 11/26/18) Allergies Reviewed: Yes Labs/Studies Labs Reviewed: Reviewed by anesthesiologist Result Diagram: 12/11/1803 12/11/18 0603 test: N/A Pre-procedure Exam Last vitals Vital Signs Date Temp Pulse Resp B/P (MAP) Pulse Ox O2 O2 Flow FiO2 Time Delivery Rate 12/12/18 98.1 63 18 151/83 98 14:03 (105) 12/11/18 Room Air 14:13 Airway: Adequate mouth opening, Adequate thyromental dist Mallampati: Mallampati III Teeth: Abnormal (upper partial removed) Lung: Normal Heart: Normal ASA Physical Status ASA physical status: 3 Emergency: E Planned Anesthetic General/MAC: LMA Planned Pain Management Single shot nerve block, Parenteral pain med, Local by surgeon Pre-operative Attestations Prior to commencing anesthesia and surgery, the patient was re-evaluated, there was verification of: *The patient's identity *The results of appropriate recent lab work and preoperative vital signs *The above evaluation not changing prior to induction *Anesthetic plan, risk benefits, alternative and complications discussed with patient/family; questions answered; patient/family understands, accepts and wishes to proceed. GERALDO FORREST MD Dec 12, 2018 16:26
[2018-12-12] MEDS ORDERED: LEVALBUTEROL (NEB) 1.25 MG/0.5 ML AMP HHN PRN (16:30)
[2018-12-12] MEDS ORDERED: ONDANSETRON 4 MG INJ IV PRN (16:30)
[2018-12-12] MEDS ORDERED: HYDROmorphONE 1 MG/5 ML IV SYRINGE IV PRN ×2 (16:30)
[2018-12-12] MEDS ORDERED: IPRATROPIUM (NEB) 0.5 MG/2.5 ML AMP HHN PRN (16:30)
[2018-12-12] MEDS ORDERED: LORAZEPAM 2 MG INJ IV PRN (16:30)
[2018-12-12] MEDS ORDERED: MEPERIDINE 25 MG INJ IV PRN (16:30)
[2018-12-12] MEDS ORDERED: FENTAnyl 50 MCG/ML VIAL IV PRN ×2 (16:30)
[2018-12-12] MEDS ORDERED: LABETALOL HCL 20MG INJ IV PRN (16:30)
[2018-12-12] MEDS ORDERED: DIPHENHYDRAMINE 50 MG INJ IV PRN (16:30)
[2018-12-12] MEDS ORDERED: hydrALAzine 20 MG INJ IV PRN (16:30)
--- NOTE | 2018-12-12 16:43 | HPN ---
Date/Time of Note Date/Time of Note DATE: 12/12/18 TIME: 16:43 Interval H&P Admission Note Pt. seen H&P reviewed: No system changes MATTHEW GIRALDO DPM Dec 12, 2018 16:43
--- NOTE | 2018-12-12 18:32 | PAC ---
Date/Time of Note Date/Time of Note DATE: 12/12/18 TIME: 18:32 Post-Anesthesia Notes Post-Anesthesia Note Last documented vital signs Vital Signs Date Temp Pulse Resp B/P (MAP) Pulse Ox O2 O2 Flow FiO2 Time Delivery Rate 12/12/18 98.2 18:29 12/12/18 63 18 151/83 98 14:03 (105) 12/11/18 Room Air 14:13 Activity: WNL Respiratory function: WNL Cardiovascular function: WNL Mental status: Baseline Pain reasonably controlled: Yes Hydration appropriate: Yes Nausea/Vomiting absent: Yes GERALDO FORREST MD Dec 12, 2018 18:32
--- NOTE | 2018-12-12 18:34 | SIPON ---
Date/Time of Note Date/Time of Note DATE: 12/12/18 TIME: 18:34 Operative Report Preoperative Diagnosis Left hallux gangrene Left foot osteomyelitis DM2 with peripheral neuropathy PAD Postoperative Diagnosis Left hallux gangrene Left foot osteomyelitis DM2 with peripheral neuropathy PAD Operation/Procedure Performed Left hallux partial amputation Surgeon Los Giraldo DPM help desk assistant none Anesthesia: general Estimated blood loss: 0 - 10 ml's Transfusion Required none Specimen Left hallux pathology Left hallux ulcer culture Left hallux bone Post lavage left hallux wound culture Grafts/Implants none Complications none LOS GIRALDO DPM Dec 12, 2018 18:34
--- NOTE | 2018-12-12 18:50 | OPR ---
Date/Time of Note Date/Time of Note DATE: 12/12/18 TIME: 18:50 Operative Report Preoperative Diagnosis Left hallux gangrene Left foot osteomyelitis DM2 with peripheral neuropathy PAD Postoperative Diagnosis Left hallux gangrene Left foot osteomyelitis DM2 with peripheral neuropathy PAD Operation/Procedure Performed Left hallux partial amputation Surgeon Los Giraldo DPM Forepart Rasper none Anesthesia Type: general Estimated Blood Loss: 0 - 10 ml's Transfusion none Specimen Left hallux pathology Left hallux ulcer culture Left hallux bone Post lavage left hallux wound culture Grafts/Implants none Complications none Indications 63 y/o M patient with uncontrolled diabetes and gangrene to his left hallux with osteomyelitis. Discussed with patient that conservative care has no improved his condition and will need surgical intervention. Patient is amenable to partial amputation of the left hallux. All of the patient's questions and concerns were addressed. No promises or guarantees were given. Procedure Description Patient was brought into the OR and placed on the OR table in the supine position. A pre-operative block was performed by the anesthesia team to the left lower extremity. The left lower extremity was scrubbed, prepped, and draped in the usual aseptic manner. Attention was directed to the left hallux gangrene site. Using a scalpel blade the area of gangrene was excised out which was approximately 3 x 3cm. There was adequate bleed noted once excised. The distal phalanx of the L hallux was exposed which had cortical destruction. The distal phalanx was removed using sharp dissection. The bone and gangrene contents of the partially amputated left hallux was sent as specimen for pathology and cultures. Copious irrigation with antibiotic infused saline was used at the partial amputation site. Post lavage wound cultures were obtained of the amputation site. The medial and lateral skin flaps of the amputation site were re- approximated using 3-0 prolene. Once secured xeroform and dry sterile dressings were applied to the left foot site. Patient was transferred to the PACU with vital signs stable and neurovascular status intact. LOS GIRALDO DPM Dec 12, 2018 18:50
[2018-12-12] MEDS: ATORVASTATIN 80 MG TAB PO SCH (19:43)
[2018-12-12] MEDS: INSULIN GLARGINE [LANTus] (100 UNITS/ML) SYG SC SCH (19:44)
[2018-12-13] MEDS: SOD CHLORIDE 0.9% 1,000 ML IV SCH ×4 (00:30→12:08)
[2018-12-13] MEDS: ACCU-CHEK XX SCH (02:00)
[2018-12-13 02:42] VITALS: BP 139/73; PULSE 66; RESP 16
[2018-12-13 07:28] VITALS: BP 148/69; PULSE 65; RESP 18
[2018-12-13] MEDS: Insulin NOVOLOG SS MILD Algorithm (SS with meals and bedtime) SC SCH ×4 (08:07→21:00)
[2018-12-13] MEDS: ASPIRIN 81 MG TAB PO SCH (08:08)
[2018-12-13] MEDS: GABAPENTIN 300 MG CAP PO SCH ×3 (08:08→21:01)
[2018-12-13] MEDS: INSULIN ASPART [NOVOLOG] 3 ML PEN SC SCH ×3 (08:09→17:54)
[2018-12-13] MEDS: HEPARIN 5,000 UNIT/1 ML VIAL SC SCH ×2 (08:10→21:03)
[2018-12-13] MEDS: HYDROCODONE/APAP (5/325) TAB PO PRN ×2 (08:10→15:20)
[2018-12-13] MEDS: CEFTRIAXONE 1 GM/50 ML (PMX) 50 ML IVPB SCH (12:04)
--- NOTE | 2018-12-13 13:32 | PN ---
Date/Time of Note Date/Time of Note DATE: 12/13/18 TIME: 13:17 Assessment/Plan VTE Prophylaxis Risk score (from Ns)>0 risk: 6 SCD applied (from Ns): Yes Pharmacological prophylaxis: heparin Lines/Catheters IV [facility]from [facility] Saline Lock Urinary Cath still in place: No Assessment/Plan Assessment/Plan 1. Left great toe osteomyelitis with nonhealing ulcer, s/p left hallux partial amputation 12/12/2018, wound care, antibiotics, follow up with scale adjuster 2. Peripheral vascular disease, follow up with Dr. Dubois 3. Diabetes mellitus, controlled, in insulin 4. Prophylaxis: Heparin Result Diagram: 12/13/188 12/13/18448 Results 24hrs Laboratory Tests Test 12/12/18 18:31 12/12/18 19:42 12/13/18 04:48 12/13/18 04:49 Bedside Glucose 125 128 White Blood Count 8.6 Red Blood Count 4.27 L Hemoglobin 12.2 L Hematocrit 37.5 L Mean Corpuscular 87.8 Volume Mean Corpuscular 28.6 L Hemoglobin Mean Corpuscular 32.5 Hemoglobin Concent Red Cell 12.5 Distribution Width Platelet Count 380 Mean Platelet Volume 8.8 Immature 0.400 Granulocytes % Neutrophils % 69.5 Lymphocytes % 20.5 Monocytes % 6.5 Eosinophils % 2.7 Basophils % 0.4 Nucleated Red Blood 0.0 Cells % Immature 0.030 Granulocytes # Neutrophils # 6.0 Lymphocytes # 1.8 Monocytes # 0.6 Eosinophils # 0.2 Basophils # 0.0 Nucleated Red Blood 0.0 Cells # Sodium Level 140 Potassium Level 4.1 Chloride Level 104 Carbon Dioxide Level 29 Anion Gap 7 Blood Urea Nitrogen 13 Creatinine 0.70 Est Glomerular > 60 Filtrat Rate mL/min Glucose Level 135 Calcium Level 9.2 Test 12/13/18 08:05 12/13/18 12:01 Bedside Glucose 122 124 Subjective 24 Hr Interval Summary Free Text/Dictation afebrile, pain is controlled Exam/Review of Systems Exam Vitals Vital Signs Date Temp Pulse Resp B/P (MAP) Pulse Ox O2 O2 Flow FiO2 Time Delivery Rate 12/13/18 98.2 65 18 148/69 98 Room Air 07:28 (95) Intake and Output 12/12/18 12/12/18 12/13/18 1515:00 23:00 07:00 IntakeIntake Total 50 ml 1750 ml 1750 ml OutputOutput Total 2075 ml 405 ml 2150 ml BalanceBalance -2025 ml 1345 ml -400 ml Constitutional: alert, oriented, well developed Psych: no complaints, nl mood/affect Head: normocephalic, atraumatic Eyes: nl conjunctiva, EOMI, nl lids, PERRL ENMT: nl external ears & nose, nl lips & teeth, nl nasal mucosa & septum Neck: supple, non-tender Respiratory: clear to auscultation, normal air movement; No congested cough, No crackles/rales, No diminished breath sounds, No intercostal retraction, No labored breathing, No respirations, No tactile fremitus, No wheezing, No other Cardiovascular: regular rate and rhythm, nl pulses; No bruits, No diastolic murmur, No edema, No gallop, No irregular rhythm, No jugular venous distention (JVD), No murmurs/extra sounds, No rub, No systolic murmur, No S3, No S4, No other Gastrointestinal: soft, nl liver, spleen, non-tender Extremities: other (left great toe lesion/wound) Neurological: STAPLE SIDE LASTER II-XII intact, nl mental status, nl speech, nl strength Results Results 24hrs Laboratory Tests Test 12/12/18 18:31 12/12/18 19:42 12/13/18 04:48 12/13/18 04:49 Bedside Glucose 125 128 White Blood Count 8.6 Red Blood Count 4.27 L Hemoglobin 12.2 L Hematocrit 37.5 L Mean Corpuscular 87.8 Volume Mean Corpuscular 28.6 L Hemoglobin Mean Corpuscular 32.5 Hemoglobin Concent Red Cell 12.5 Distribution Width Platelet Count 380 Mean Platelet Volume 8.8 Immature 0.400 Granulocytes % Neutrophils % 69.5 Lymphocytes % 20.5 Monocytes % 6.5 Eosinophils % 2.7 Basophils % 0.4 Nucleated Red Blood 0.0 Cells % Immature 0.030 Granulocytes # Neutrophils # 6.0 Lymphocytes # 1.8 Monocytes # 0.6 Eosinophils # 0.2 Basophils # 0.0 Nucleated Red Blood 0.0 Cells # Sodium Level 140 Potassium Level 4.1 Chloride Level 104 Carbon Dioxide Level 29 Anion Gap 7 Blood Urea Nitrogen 13 Creatinine 0.70 Est Glomerular > 60 Filtrat Rate mL/min Glucose Level 135 Calcium Level 9.2 Test 12/13/18 08:05 12/13/18 12:01 Bedside Glucose 122 124 Medications Medication Current Medications IV Flush (NS 3 ml) 3 ml PER PROTOCOL IV ; Start 12/06/18 at 18:30 Ondansetron HCl (Zofran Inj) 4 mg Q6H PRN IV NAUSEA/VOMITING; Start 12/06/18 at 18:30 Acetaminophen (Tylenol Tab) 650 mg Q6H PRN PO .PAIN 1-3 OR TEMP; Start 12/06/18 at 18:30 Acetaminophen/ Hydrocodone Bitart ([place] (5/325)) 1 tab Q6H PRN PO .MOD PAIN 4- 6 Last administered on 12/13/18at 08:10; Admin Dose 1 TAB; Start 12/06/18 at 18:30 Docusate Sodium (Colace) 100 mg Q12H PRN PO .CONSTIPATION; Start 12/06/18 at 1 8:30 Zolpidem Tartrate (Ambien) 5 mg QHS PRN PO .INSOMNIA; Start 12/06/18 at 18:30 Heparin Sodium (Porcine) (Heparin (5000 Units/1ml)) 5,000 unit Q12 SC Last administered on 12/13/18at 08:10; Admin Dose 5,000 UNIT; Start 12/06/18 at 21:00 Ceftriaxone Sodium 50 ml @ 100 mls/hr Q24H IVPB Last administered on 12/13/18at 12:04; Admin Dose 100 MLS/HR; Start 12/07/18 at 13:00 Aspirin (Aspirin) 81 mg DAILY PO Last administered on 12/13/18at 08:08; Admin Dose 81 MG; Start 12/07/18 at 09:00 Atorvastatin Calcium (Lipitor) 80 mg QHS PO Last administered on 12/12/18at 19:43; Admin Dose 80 MG; Start 12/06/18 at 21:00 Gabapentin (Neurontin) 300 mg TID PO Last administered on 12/13/18at 12:00; Admin Dose 300 MG; Start 12/06/18 at 21:00 Diagnostic Test (Pha) (Accu-Chek) 1 ea 02 XX ; Start 12/07/18 at 02:00 Insulin Glargine (Lantus) 20 units DAILY@2000 SC Last administered on 12/12/18at 19:44; Admin Dose 20 UNITS; Start 12/06/18 at 20:00 Insulin Aspart (Novolog Insulin Pen) 7 unit WITH MEALS SC Last administered on 12/13/18at 12:03; Admin Dose 7 UNIT; Start 12/07/18 at 08:00 Sodium Chloride 1,000 ml @ 100 mls/hr Q10H IV Last administered on 12/13/18at 12:08; Admin Dose 100 MLS/HR; Start 12/06/18 at 18:30 Miscellaneous Information 1 ea NOTE XX ; Start 12/06/18 at 19:00 Glucose (Glutose) 15 gm Q15M PRN PO DECREASED GLUCOSE; Start 12/06/18 at 19:00 Glucose (Glutose) 22.5 gm Q15M PRN PO DECREASED GLUCOSE; Start 12/06/18 at 19:00 Dextrose (D50w Syringe) 25 ml Q15M PRN IV DECREASED GLUCOSE; Start 12/06/18 at 19:00 Dextrose (D50w Syringe) 50 ml Q15M PRN IV DECREASED GLUCOSE; Start 12/06/18 at 19:00 Glucagon (Glucagen) 1 mg Q15M PRN IM DECREASED GLUCOSE; Start 12/06/18 at 19:00 Glucose (Glutose) 15 gm Q15M PRN BUCCAL DECREASED GLUCOSE; Start 12/06/18 at 19:00 Insulin Aspart (Novolog Insulin Pen) (Adult SC Insulin - Mild Algorithm)... AC MEALS AND BEDTIME SC Last administered on 12/12/18at 07:48; Admin Dose 1 UNIT; Start 12/10/18 at 17:30 Morphine Sulfate (morphine) 6 mg Q4H PRN PO SEVERE PAIN LEVEL 7-10; Start 12/11/18 at 16:30 Nitroglycerin (Nitroglycerin 0.2 Mg/Hr) 1 patch DAILY TRANSDERM ; Start 12/14/18 at 09:00 ROSA FRIEDMAN MD Dec 13, 2018 13:28
[2018-12-13 14:05] VITALS: PULSE 68; RESP 18
[2018-12-13] MEDS: NITROGLYCERIN 0.2 MG/HR PATCH TRANSDERM SCH (15:49)
[2018-12-13 20:24] VITALS: BP 137/69; PULSE 63; RESP 19
[2018-12-13] MEDS: ATORVASTATIN 80 MG TAB PO SCH (21:01)
[2018-12-13] MEDS: INSULIN GLARGINE [LANTus] (100 UNITS/ML) SYG SC SCH (21:03)
--- NOTE | 2018-12-13 23:04 | PN ---
Date/Time of Note Date/Time of Note DATE: 12/13/18 TIME: 23:04 Assessment/Plan VTE Prophylaxis Risk score (from Nsg)>0 risk: 6 Pharmacological prophylaxis: other Lines/Catheters IV Catheter Type (from Nrsg): Saline Lock Urinary Cath still in place: No Assessment/Plan Assessment/Plan Dry gangrene left hallux - s/p partial hallux amputation Left hallux osteomyelitis - s/p partial hallux amputation with bone biopsy Left hallux diabetic ulcer PAD DM2 with peripheral neuropathy Plan: Appreciate vascular input/assistance. Recommend nitropatch applied to the plantar aspect of the left foot near the site of surgery. Continue to monitor surgical site. No leukocytosis and no fevers appreciated. Intra-op Cx and pathology pending. IV abx per recommendations. Result Diagram: 12/13/1844712/13/189 Results 24hrs Laboratory Tests Test 12/13/18 04:48 12/13/18 04:49 12/13/18 08:05 12/13/18 12:01 White Blood Count 8.6 Red Blood Count 4.27 L Hemoglobin 12.2 L Hematocrit 37.5 L Mean Corpuscular 87.8 Volume Mean Corpuscular 28.6 L Hemoglobin Mean Corpuscular 32.5 Hemoglobin Concent Red Cell 12.5 Distribution Width Platelet Count 380 Mean Platelet Volume 8.8 Immature 0.400 Granulocytes % Neutrophils % 69.5 Lymphocytes % 20.5 Monocytes % 6.5 Eosinophils % 2.7 Basophils % 0.4 Nucleated Red Blood 0.0 Cells % Immature 0.030 Granulocytes # Neutrophils # 6.0 Lymphocytes # 1.8 Monocytes # 0.6 Eosinophils # 0.2 Basophils # 0.0 Nucleated Red Blood 0.0 Cells # Sodium Level 140 Potassium Level 4.1 Chloride Level 104 Carbon Dioxide Level 29 Anion Gap 7 Blood Urea Nitrogen 13 Creatinine 0.70 Est Glomerular > 60 Filtrat Rate mL/min Glucose Level 135 Calcium Level 9.2 Bedside Glucose 122 124 Test 12/13/18 17:43 12/13/18 21:00 Bedside Glucose 120 124 Subjective 24 Hr Interval Summary Free Text/Dictation No acute events overnight. Exam/Review of Systems Exam Vitals Vital Signs Date Temp Pulse Resp B/P (MAP) Pulse Ox O2 O2 Flow FiO2 Time Delivery Rate 12/13/18 98.7 63 19 137/69 98 20:24 (91) 12/13/18 Room Air 14:05 Intake and Output 12/12/18 12/12/18 12/13/18 1515:00 23:00 07:00 IntakeIntake Total 50 ml 1750 ml 1750 ml OutputOutput Total 2075 ml 405 ml 2150 ml BalanceBalance -2025 ml 1345 ml -400 ml Exam Sutures intact and skin edges well approximated There is a site of ischemia to the plantar lateral aspect of the skin flap of the left hallux amputation site No proximal streaking, no purulence appreciated Absent protective sensations. Results Results 24hrs Laboratory Tests Test 12/13/18 04:48 12/13/18 04:49 12/13/18 08:05 12/13/18 12:01 White Blood Count 8.6 Red Blood Count 4.27 L Hemoglobin 12.2 L Hematocrit 37.5 L Mean Corpuscular 87.8 Volume Mean Corpuscular 28.6 L Hemoglobin Mean Corpuscular 32.5 Hemoglobin Concent Red Cell 12.5 Distribution Width Platelet Count 380 Mean Platelet Volume 8.8 Immature 0.400 Granulocytes % Neutrophils % 69.5 Lymphocytes % 20.5 Monocytes % 6.5 Eosinophils % 2.7 Basophils % 0.4 Nucleated Red Blood 0.0 Cells % Immature 0.030 Granulocytes # Neutrophils # 6.0 Lymphocytes # 1.8 Monocytes # 0.6 Eosinophils # 0.2 Basophils # 0.0 Nucleated Red Blood 0.0 Cells # Sodium Level 140 Potassium Level 4.1 Chloride Level 104 Carbon Dioxide Level 29 Anion Gap 7 Blood Urea Nitrogen 13 Creatinine 0.70 Est Glomerular > 60 Filtrat Rate mL/min Glucose Level 135 Calcium Level 9.2 Bedside Glucose 122 124 Test 12/13/18 17:43 12/13/18 21:00 Bedside Glucose 120 124 Medications Medication Current Medications IV Flush (NS 3 ml) 3 ml PER PROTOCOL IV ; Start 12/06/18 at 18:30 Ondansetron HCl (Zofran Inj) 4 mg Q6H PRN IV NAUSEA/VOMITING; Start 12/06/18 at 18:30 Acetaminophen (Tylenol Tab) 650 mg Q6H PRN PO .PAIN 1-3 OR TEMP; Start 12/06/18 at 18:30 Acetaminophen/ Hydrocodone Bitart ([place] (5/325)) 1 tab Q6H PRN PO .MOD PAIN 4- 6 Last administered on 12/13/18at 15:20; Admin Dose 1 TAB; Start 12/06/18 at 18:30 Docusate Sodium (Colace) 100 mg Q12H PRN PO .CONSTIPATION; Start 12/06/18 at 18:30 Zolpidem Tartrate (Ambien) 5 mg QHS PRN PO .INSOMNIA; Start 12/06/18 at 18:30 Heparin Sodium (Porcine) (Heparin (5000 Units/1ml)) 5,000 unit Q12 SC Last administered on 12/13/18at 21:03; Admin Dose 5,000 UNIT; Start 12/06/18 at 21:00 Ceftriaxone Sodium 50 ml @ 100 mls/hr Q24H IVPB Last administered on 12/13/18at 12:04; Admin Dose 100 MLS/HR; Start 12/07/18 at 13:00 Aspirin (Aspirin) 81 mg DAILY PO Last administered on 12/13/18 08:08; Admin Dose 81 MG; Start 12/07/18 at 09:00 Atorvastatin Calcium (Lipitor) 80 mg QHS PO Last administered on 12/13/18at 21:01; Admin Dose 80 MG; Start 12/06/18 at 21:00 Gabapentin (Neurontin) 300 mg TID PO Last administered on 12/13/18 21:01; Admin Dose 300 MG; Start 12/06/18 at 21:00 Diagnostic Test (Pha) (Accu-Chek) 1 ea 02 XX ; Start 12/07/18 at 02:00 Insulin Glargine (Lantus) 20 units DAILY@2000 SC Last administered on 12/13/18at 21:03; Admin Dose 20 UNITS; Start 12/06/18 at 20:00 Insulin Aspart (Novolog Insulin Pen) 7 unit WITH MEALS SC Last administered on 12/13/18at 17:54; Admin Dose 7 UNIT; Start 12/07/18 at 08:00 Miscellaneous Information 1 ea NOTE XX ; Start 12/06/18 at 19:00 Glucose (Glutose) 15 gm Q15M PRN PO DECREASED GLUCOSE; Start 12/06/18 at 19:00 Glucose (Glutose) 22.5 gm Q15M PRN PO DECREASED GLUCOSE; Start 12/06/18 at 19:00 Dextrose (D50w Syringe) 25 ml Q15M PRN IV DECREASED GLUCOSE; Start 12/06/18 at 19:00 Dextrose (D50w Syringe) 50 ml Q15M PRN IV DECREASED GLUCOSE; Start 12/06/18 at 19:00 Glucagon (Glucagen) 1 mg Q15M PRN IM DECREASED GLUCOSE; Start 12/06/18 at 19:00 Glucose (Glutose) 15 gm Q15M PRN BUCCAL DECREASED GLUCOSE; Start 12/06/18 at 19:00 Insulin Aspart (Novolog Insulin Pen) (Adult SC Insulin - Mild Algorithm)... AC MEALS AND BEDTIME SC Last administered on 12/12/18at 07:48; Admin Dose 1 UNIT; Start 12/10/18 at 17:30 Morphine Sulfate (morphine) 6 mg Q4H PRN PO SEVERE PAIN LEVEL 7-10; Start 12/11/18 at 16:30 Nitroglycerin (Nitroglycerin 0.2 Mg/Hr) 1 patch DAILY TRANSDERM Last a dministered on 12/13/18at 15:49; Admin Dose 1 PATCH; Start 12/13/18 at 15:30 MATTHEW GIRALDO DPM Dec 13, 2018 23:04
[2018-12-14] MEDS: ACCU-CHEK XX SCH (02:00)
[2018-12-14 02:10] VITALS: BP 102/64; PULSE 65; RESP 17
[2018-12-14] MEDS: HYDROCODONE/APAP (5/325) TAB PO PRN (04:09)
[2018-12-14] MEDS: Insulin NOVOLOG SS MILD Algorithm (SS with meals and bedtime) SC SCH ×2 (07:00→12:54)
[2018-12-14 07:16] VITALS: BP 127/60; PULSE 66; RESP 18
[2018-12-14] MEDS: NITROGLYCERIN 0.2 MG/HR PATCH TRANSDERM SCH (08:07)
[2018-12-14] MEDS: ASPIRIN 81 MG TAB PO SCH (08:07)
[2018-12-14] MEDS: GABAPENTIN 300 MG CAP PO SCH ×2 (08:07→13:07)
[2018-12-14] MEDS: INSULIN ASPART [NOVOLOG] 3 ML PEN SC SCH ×2 (08:10→12:54)
[2018-12-14] MEDS: HEPARIN 5,000 UNIT/1 ML VIAL SC SCH (08:10)
[2018-12-14] MEDS ORDERED: NITROGLYCERIN 0.2 MG/HR PATCH TRANSDERM SCH (09:00)
[2018-12-14] MEDS: CEFTRIAXONE 1 GM/50 ML (PMX) 50 ML IVPB SCH (13:00)
--- NOTE | 2018-12-14 13:13 | PDOCDIS ---
Discharge Instructions DIAGNOSIS Discharge Diagnosis Osteomyelitis CONDITION [id number] Patient Condition: [id number] Stable FOLLOW UP/APPOINTMENTS Follow-up Plan Continue taking your antibiotics as prescribed previously Make an appointment to see your manager parking in clinic within the next 1 week JANELLE LUNA MD Dec 14, 2018 13:13
--- NOTE | 2018-12-14 13:13 | DS ---
Date/Time of Note Date/Time of Note DATE: 12/14/18 TIME: 13:12 Discharge Summary Admission/Discharge Info Admit Date/Time Dec 06, 2018 at 19:36 Discharge Date/Time Discharge Diagnosis Osteomyelitis Patient Condition: Stable Hospital Course Patient underwent debridement for OM. He was arranged for home wound care. He was given IV antibiotics in house. He was advised to continue Bactrim and Cipro PO as an outpatient and to follow up in the next couple days with [facility] Home Meds Active Scripts Glimepiride* (Glimepiride*) 1 Mg Tablet, 1 MG PO WITH BREAKFAST for 30 Days, #30 TAB Prov:JANELLE LUNA MD 11/28/18 Ciprofloxacin Hcl* (Ciprofloxacin Hcl*) 750 Mg Tablet, 750 MG PO BID for 30 Days, #60 TAB Prov:JANELLE LUNA MD 11/28/18 Sulfamethoxazole/Trimethoprim* (Bactrim Ds* Tablet) 1 Each Tablet, 1 TAB PO BID for 30 Days, #60 TAB Prov:JANELLE LUNA MD 11/28/18 Reported Medications Aspirin* (Aspirin* Chew) 81 Mg Tab.chew, 81 MG PO DAILY, TAB.CHEW 11/26/18 Atorvastatin* (Atorvastatin*) 80 Mg Tablet, 80 MG PO QHS, #30 TAB 11/26/18 Metformin* (Glucophage*) 1,000 Mg Tablet, 1000 MG PO BID, #60 TAB 11/26/18 Gabapentin* (Gabapentin*) 300 Mg Capsule, 300 MG PO TID, #90 CAP 11/26/18 Primary Care Provider Care Physician No Primary Pending Labs Laboratory Tests Test 12/13/18 17:43 12/13/18 21:00 12/14/18 08:06 12/14/18 12:51 Bedside 120 124 122 172 Glucose mg/dL (70-220) mg/dL (70-220) mg/dL (70-220) mg/dL (70-220) JANELLE LUNA MD Dec 14, 2018 13:13
== END 2018-12-14 14:00 | disposition home or self-care (01) | DRG 617 ==
LOC: FTE 10:54 → 2NE 16:21 → OBSVTOIN 19:36 → 2NE 12-11 15:10
PROVIDERS: ADMIT Internal Medicine; ATTEND Internal Medicine
PROC: B40D1ZZ Plain Radiography of Aorta and Bilateral Lower Extremity Arteries using Low Osmolar Contrast (ICD-10-PCS; 2018-12-10)
PROC: 0Y6Q0Z3 Detachment at Left 1st Toe, Low, Open Approach (ICD-10-PCS; principal; 2018-12-12 20:30)
DX: E11.69 Type 2 diabetes mellitus with other specified complication (principal); E11.52 Type 2 diabetes mellitus with diabetic peripheral angiopathy with gangrene; I70.262 Atherosclerosis of native arteries of extremities with gangrene, left leg; M86.8X7 Other osteomyelitis, ankle and foot; N17.9 Acute kidney failure, unspecified; E11.621 Type 2 diabetes mellitus with foot ulcer; L97.529 Non-pressure chronic ulcer of other part of left foot with unspecified severity; E11.65 Type 2 diabetes mellitus with hyperglycemia; B95.1 Streptococcus, group B, as the cause of diseases classified elsewhere; E11.40 Type 2 diabetes mellitus with diabetic neuropathy, unspecified
CPT/HCPCS: 36246; 75630; 75710; 76937; 80048; 80053; 82962; 83735; 84100; 85025; 85610; 85651; 85730; 86140; 87040; 87070; 87081; 87102; 88305; 88311; 96361; 96365; 96375; G0378; C1769; C1887; C1894; J0690; J0696; J1644; J1815; J1885; J2250; J2270; J2765; J2795; J3010; J7030; J7040; J7120; Q9967